=== PATIENT | female | born 1960 | race Caucasian/White ===

== ENCOUNTER → 2016-10-25 | Outpatient (CLI) | payer BC, OTHER ==
--- NOTE | 2016-10-25 10:13 | MR ---
EXAMINATION TYPE: MR cervical spine wo con DATE OF EXAM: 10/25/2016 COMPARISON: 08/16/2012 HISTORY: other csp disc degen, pain and numbness TECHNIQUE: Multiplanar, multisequence images of the cervical spine were acquired. C2-C3: No evidence for degenerative disc disease. No disc bulge/herniation or protrusion. No Canal stenosis. Foramina are patent bilaterally. C3-C4: No evidence for degenerative disc disease. No disc bulge/herniation or protrusion. No Canal stenosis. Foramina are patent bilaterally. C4-C5: There is a small central focal protrusion with mild anterior thecal sac compression. No cord c ontact is evident. No spinal canal stenosis present. Neural foramen are patent. C5-C6: Minimal broad-based disc bulge has anterior thecal sac flattening. This may be slightly greate r in the right paracentral and right lateral direction. Mild right foraminal narrowing may be present . C6-C7: There is mild left paracentral broad-based disc bulge with mild anterior thecal sac compressio n. No AP spinal canal stenosis present. Neural foramen are patent. C7-T1: Some mild right paracentral disc bulge is present with mild anterior thecal sac impression. No AP spinal canal stenosis present. The neural foramen are patent. Cervical segments are intact. There is normal alignment. Cervical spinal cord is of normal signal. Craniovertebral junction relationships are within normal limits. IMPRESSION: 1. Disc bulging with mild anterior thecal sac compression discussed above. Largest disc bulge appears to be in the left paracentral region at C6-7 without cord contact. 2. Findings appear stable from the comparison of 2012.
== END | disposition home or self-care (01) ==
LOC: RADMRIMAIN 08:19
PROVIDERS: ATTEND Internal Medicine Rheumatology
DX: M50.223 Other cervical disc displacement at C6-C7 level (principal); G95.20 Unspecified cord compression; M50.30 Other cervical disc degeneration, unspecified cervical region
CPT/HCPCS: 72141

== ENCOUNTER → 2017-05-08 | Outpatient (CLI) | payer OTHER ==
--- NOTE | 2017-05-08 10:30 | BD ---
EXAMINATION TYPE: MG DEXA axial skeleton. DATE OF EXAM: 05/08/2017 COMPARISON: June 21, 2012 CLINICAL HISTORY: bone disorder per order. Height: 5'5 Weight: 129 FRAX RISK QUESTIONS: Alcohol (3 or more units per day): no Family History (Parent hip fracture): yes Glucocorticoids (More than 3mos): no (Ex: prednisone, prednisolone, methylprednisolone, dexamethasone, and hydrocortisone). History of Fracture in Adulthood: yes Secondary Osteoporosis: 1. Type 1 Diabetes: no 2. Hyperthyroidism: no 3. Menopause before 45: no 4. Malnutrition: no 5. Chronic liver disease: no Rheumatoid Arthritis: no Current Tobacco Use: no RISK FACTORS HISTORY OF: History of Wrist Fracture: left When: childhood Family History of Osteoporosis: yes Active: no Diet low in dairy products/other sources of calcium: yes Postmenopausal woman: yes Take estrogen and/or progesterone medications: How lon months Frequent falls: MEDICATIONS: Additional Medications: cholesterols, high blood pressure, depression, pain Additional History: EXAM MEASUREMENTS: Bone mineral densitometry was performed using the [employer]. Bone mineral density as measured about the Lumbar spine is: ----- L1-L4(G/cm2): 1.286 T Score Values are as follows: ----- L2: -1.6 ----- L3: -0.5 ----- L4: --0.7 ------L1-L4:-0.8 -Bone mineral density has: Decreased - 3.4nce study of: 06/21/2012 Bone mineral density about the R hip (g/cm2): 0.891 Bone mineral density about the L hip (g/cm2): 0.828 T Score values are as follows: -----R Neck: -1.5 -----L Neck: -1.1 -----R Total: -1.8 -----L Total: -1.7 Bone mineral density has: Decreased -6.9% since study of: 06/21/2012 IMPRESSION Osteopenia (T Score between -2.5 and -1 as noted by T score values is now present in both hips. Bone density is noted decreased or diminished from prior. There remains slightly increased risk of fractur e and the patient may be considered for treatment. Re-Screen 2-5 years. NOTE: T-SCORE=SD OF THE YOUNG ADULT MEAN.
--- NOTE | 2017-05-09 07:13 | MM ---
Reason for exam: screening (asymptomatic). Last mammogram was performed 3 years and 2 months ago. History: Patient is postmenopausal. Took hormonal contraceptives for 15 years. Physical Findings: A clinical breast exam by your physician is recommended on an annual basis and results should be correlated with mammographic findings. MG 3D Screening Mammo W/Cad Bilateral CC and MLO view(s) were taken. Prior study comparison: February 27, 2014, left breast MG work up mamm w CAD LT. May 31, 2009, mammogram. The breast tissue is heterogeneously dense. This may lower the sensitivity of mammography. There is chronic nodularity bilaterally, stable in the left breast 2013. ASSESSMENT: Benign, BI-RAD 2 RECOMMENDATION: Routine screening mammogram of both breasts in 1 year.
== END | disposition home or self-care (01) ==
LOC: RADMAMWWP 08:52
PROVIDERS: ATTEND Obstetrics & Gynecology
DX: Z12.31 Encounter for screening mammogram for malignant neoplasm of breast (principal); M85.852 Other specified disorders of bone density and structure, left thigh; M85.851 Other specified disorders of bone density and structure, right thigh
CPT/HCPCS: 77063; 77067; 77080

== ENCOUNTER 2017-07-28 11:13 | Observation (INO) | payer OTHER ==
[2017-07-28] MEDS ORDERED: NITROGLYCERIN OINT 1 INCH/GM PACKET TOPICAL STA (11:28)
[2017-07-28] MEDS ORDERED: LORazepam 1 MG TAB PO STA (11:28)
[2017-07-28] MEDS ORDERED: ASPIRIN 81 MG PO STA (11:28)
--- NOTE | 2017-07-28 11:31 | ED ---
General Adult HPI - General Chief complaint: Chest Pain Stated complaint: Hypertension, Chest pain Time Seen by Provider: 07/28/17 11:23 Source: patient, RN notes reviewed Mode of arrival: ambulatory Limitations: no limitations - History of Present Illness Initial comments: Patient is a pleasant 56-year-old female presenting to the emergency department with chest discomfort. Patient had some symptoms yesterday however has been persistent since waking this morning. Discomfort is mild. Discomfort is described as tightness without radiation. Patient has some mild associated nausea. No dyspnea or diaphoresis. Patient does feel somewhat anxious. Patient states her blood pressure has been running high. - Related Data Allergies Allergy/AdvReac Type Severity Reaction Status Date / Time codeine Allergy Rash/Hives Verified 07/28/17 11:20 Review of Systems ROS Statement: Those systems with pertinent positive or pertinent negative responses have been documented in the HPI. ROS Other: All systems not noted in ROS Statement are negative. Constitutional: Denies: fever Eyes: Denies: eye pain ENT: Denies: ear pain Respiratory: Denies: cough, dyspnea Cardiovascular: Reports: chest pain Endocrine: Denies: fatigue Gastrointestinal: Denies: abdominal pain Genitourinary: Denies: dysuria Musculoskeletal: Denies: back pain Skin: Denies: rash Neurological: Denies: weakness Psychiatric: Reports: anxiety Past Medical History Past Medical History: Fibromyalgia, Hyperlipidemia, Hypertension History of Any Multi-Drug Resistant Organisms: None Reported Past Surgical History: Cholecystectomy, Tonsillectomy Past Psychological History: Depression Smoking Status: Never smoker Past Alcohol Use History: Rare Past Drug Use History: None Reported General Exam Limitations: no limitations General appearance: alert, in no apparent distress Head exam: Present: atraumatic Eye exam: Present: normal appearance, PERRL ENT exam: Present: normal oropharynx Neck exam: Present: normal inspection Respiratory exam: Present: normal lung sounds bilaterally. Absent: chest wall tenderness Cardiovascular Exam: Present: regular rate, normal rhythm Expanded Peripheral pulses: 2+: Radial (R), Radial (L), Posterior Tibialis (R), Posterior Tibialis (L) GI/Abdominal exam: Present: soft. Absent: tenderness Extremities exam: Present: normal inspection. Absent: pedal edema, calf tenderness Neurological exam: Present: alert Psychiatric exam: Present: normal mood Skin exam: Present: normal color Course Vital Signs 07/28/17 07/28/17 07/28/17 11:17 11:56 13:15 Temperature 98.3 F Pulse Rate 79 74 63 Respiratory 18 18 18 Rate Blood Pressure 199/93 168/86 150/77 O2 Sat by Pulse 99 100 99 Oximetry EKG Findings - EKG Comments: EKG Findings:: Normal sinus rhythm 73. PA 144. QRS 80. QT 396. QTc 436. Normal axis. Normal QRS. No acute ST change. Medical Decision Making - Medical Decision Making Patient reevaluated and resting comfortably in bed. Anxiety resolved with Ativan. Patient still has minimal chest discomfort. Case was discussed in detail with Dr. Glover, who will admit his patient. He does not want any consults at this time. - Lab Data Result diagrams: 07/28/17 11:39 07/28/17 11:39 Lab Results 07/28/17 07/28/17 07/28/17 Range/Units 11:39 11:39 11:39 WBC 10.0 (3.8-10.6) k/uL RBC 4.43 (3.80-5.40) m/uL Hgb 13.5 (11.4-16.0) gm/dL Hct 39.4 (34.0-46.0) % MCV 88.8 (80.0-100.0) fL MCH 30.3 (25.0-35.0) pg MCHC 34.2 (31.0-37.0) g/dL RDW 12.9 (11.5-15.5) % Plt Count 382 (150-450) k/uL Neutrophils % 69 % Lymphocytes % 21 % Monocytes % 5 % Eosinophils % 2 % Basophils % 1 % Neutrophils # 6.9 (1.3-7.7) k/uL Lymphocytes # 2.1 (1.0-4.8) k/uL Monocytes # 0.5 (0-1.0) k/uL Eosinophils # 0.2 (0-0.7) k/uL Basophils # 0.1 (0-0.2) k/uL PT (9.0-12.0) sec INR (<1.2) APTT (22.0-30.0) sec Sodium 144 (137-145) mmol/L Potassium 3.9 (3.5-5.1) mmol/L Chloride 101 (98-107) mmol/L Carbon Dioxide 28 (22-30) mmol/L Anion Gap 15 mmol/L BUN 17 (7-17) mg/dL Creatinine 0.75 (0.52-1.04) mg/dL Est GFR (CKD-EPI)AfAm >90 (>60 ml/min/1.73 sqM) Est GFR (CKD-EPI)NonAf 90 (>60 ml/min/1.73 sqM) Glucose 92 (74-99) mg/dL Calcium 10.2 (8.4-10.2) mg/dL Magnesium 1.9 (1.6-2.3) mg/dL Total Bilirubin 0.6 (0.2-1.3) mg/dL AST 41 H (14-36) U/L ALT 32 (9-52) U/L Alkaline Phosphatase 50 (38-126) U/L Total Creatine Kinase 133 (30-135) U/L CK-MB (CK-2) 2.8 H* (0.0-2.4) ng/mL CK-MB (CK-2) Rel Index 2.1 Troponin I <0.012 (0.000-0.034) ng/mL Total Protein 7.5 (6.3-8.2) g/dL Albumin 4.6 (3.5-5.0) g/dL 07/28/17 Range/Units 11:39 WBC (3.8-10.6) k/uL RBC (3.80-5.40) m/uL Hgb (11.4-16.0) gm/dL Hct (34.0-46.0) % MCV (80.0-100.0) fL MCH (25.0-35.0) pg MCHC (31.0-37.0) g/dL RDW (11.5-15.5) % Plt Count (150-450) k/uL Neutrophils % % Lymphocytes % % Monocytes % % Eosinophils % % Basophils % % Neutrophils # (1.3-7.7) k/uL Lymphocytes # (1.0-4.8) k/uL Monocytes # (0-1.0) k/uL Eosinophils # (0-0.7) k/uL Basophils # (0-0.2) k/uL PT 10.2 (9.0-12.0) sec INR 1.0 (<1.2) APTT 33.2 H (22.0-30.0) sec Sodium (137-145) mmol/L Potassium (3.5-5.1) mmol/L Chloride (98-107) mmol/L Carbon Dioxide (22-30) mmol/L Anion Gap mmol/L BUN (7-17) mg/dL Creatinine (0.52-1.04) mg/dL Est GFR (CKD-EPI)AfAm (>60 ml/min/1.73 sqM) Est GFR (CKD-EPI)NonAf (>60 ml/min/1.73 sqM) Glucose (74-99) mg/dL Calcium (8.4-10.2) mg/dL Magnesium (1.6-2.3) mg/dL Total Bilirubin (0.2-1.3) mg/dL AST (14-36) U/L ALT (9-52) U/L Alkaline Phosphatase (38-126) U/L Total Creatine Kinase (30-135) U/L CK-MB (CK-2) (0.0-2.4) ng/mL CK-MB (CK-2) Rel Index Troponin I (0.000-0.034) ng/mL Total Protein (6.3-8.2) g/dL Albumin (3.5-5.0) g/dL - Radiology Data Radiology results: image reviewed (Chest x-ray shows no acute process.) Disposition Clinical Impression: Chest pain Disposition: ADMITTED IP TO THIS [facility] Is patient prescribed a controlled substance at d/c from ED?: No Referrals: Bob Glover MD [Primary Care Provider] - 1-2 days Decision Time: 13:54
[2017-07-28 12:14] LABS: Basophils # (A) 0.1 k/uL (0-0.2); Basophils % (A) 1 %; Eosinophils # (A) 0.2 k/uL (0-0.7); Eosinophils % (A) 2 %; HCT 39.4 % (34.0-46.0); HGB 13.5 gm/dL (11.4-16.0); Lymphocytes # (A) 2.1 k/uL (1.0-4.8); Lymphocytes % (A) 21 %; MCH 30.3 pg (25.0-35.0); MCHC 34.2 g/dL (31.0-37.0); MCV 88.8 fL (80.0-100.0); Mean Platelet Volume 6.7; Monocytes # (A) 0.5 k/uL (0-1.0); Monocytes % (A) 5 %; Neutrophils # (A) 6.9 k/uL (1.3-7.7); Neutrophils % (A) 69 %; Platelet Count 382 k/uL (150-450); RBC 4.43 m/uL (3.80-5.40); RDW 12.9 % (11.5-15.5)
[2017-07-28 12:23] LABS: Partial Thromboplastin Time 33.2 sec (22.0-30.0); Prothrombin Time 10.2 sec (9.0-12.0)
[2017-07-28 12:32] LABS: ALT 32 U/L (9-52); AST 41 U/L (14-36); Albumin 4.6 g/dL (3.5-5.0); Alkaline Phosphatase 50 U/L (38-126); Anion Gap 15 mmol/L; Blood Urea Nitrogen 17 mg/dL (7-17); Calcium 10.2 mg/dL (8.4-10.2); Carbon Dioxide 28 mmol/L (22-30); Chloride 101 mmol/L (98-107); Glucose 92 mg/dL (74-99); Magnesium 1.9 mg/dL (1.6-2.3); Potassium 3.9 mmol/L (3.5-5.1); Sodium 144 mmol/L (137-145); Total Bilirubin 0.6 mg/dL (0.2-1.3); Total Protein 7.5 g/dL (6.3-8.2)
[2017-07-28 12:35] LABS: Creatine Kinase 133 U/L (30-135)
--- NOTE | 2017-07-28 12:41 | XR ---
EXAMINATION TYPE: XR chest 2V DATE OF EXAM: 07/28/2017 HISTORY: Chest Pain. REFERENCE: Previous study dated 04/08/2011. FINDINGS: The lungs are overinflated but clear. Pleural spaces are clear. The heart is not enlarged. IMPRESSION: COPD.
[2017-07-28 12:48] LABS: Troponin I <0.012 ng/mL (0.000-0.034)
[2017-07-28 12:52] LABS: Creatine Kinase MB 2.8 ng/mL (0.0-2.4)
[2017-07-28] MEDS ORDERED: NITROGLYCERIN SL TABS 0.4 MG TAB SUBLINGUAL PRN (13:55)
[2017-07-28] MEDS ORDERED: ALPRAZolam 0.25 MG TAB PO PRN (16:13)
--- NOTE | 2017-07-28 18:03 | HP ---
HISTORY AND PHYSICAL CHIEF COMPLAINT: Chest pain and high blood pressure. HISTORY OF PRESENT ILLNESS: This is another admission is for this 56-year-old white female. She has had problems with hypertension in the past. She is generally under fairly good control with Ziac. She has also had some problems with depression. Her mother recently, but she feels that this is not been a stressor. She has no other stressors. She is retired and doing well. She noticed that she had a headache and some discomfort in her left anterior chest and her blood pressure was 190/110. She took an extra Ziac and went to bed. Apparently when she got up this morning, she felt dizzy and came into the emergency room, where blood pressure was 190/100. She felt a little bit nauseated, but she did not have any significant shortness of breath or diaphoresis. She had no radiation of the pain. The pain sounds atypical for angina. She does have a family history. Her mother had coronary disease and had a 4-vessel CABG at age of 55. She also had profound hypertension and kidney disease. The remainder of her past medical history is unremarkable. She does not smoke or drink. PHYSICAL EXAMINATION: Blood pressure 190/100 with a pulse of 86,respirations of 36 and she is afebrile. In general, she appeared to be slender, well developed, well nourished, in no acute distress. Skin color is normal. Skin is warm, dry. Lymph nodes not enlarged. Head, ears, eyes, nose, mouth, and throat are normal. Carotids are normal. Chest is clear. Cardiac is normal sinus rhythm and no murmurs or extra sounds. Abdomen is soft, nontender and there is no visceromegaly or masses. Bowel sounds are present. Extremities are normal. Neurologically, she is intact. IMPRESSION: 1. Hypertensive crisis. 2. History of hypertension. 3. History of depression. 4. Strong family history of heart disease. PLAN: 1. Bed rest. 2. IV fluids. 3. Serial EKGs and enzymes. 4. If these remain normal, she may be discharged, but should be set up for a stress echo. MMODL / IJN: [id number] /
[2017-07-28 18:06] LABS: Creatine Kinase 97 U/L (30-135)
[2017-07-28 18:18] LABS: Creatine Kinase MB 1.8 ng/mL (0.0-2.4); Troponin I <0.012 ng/mL (0.000-0.034)
[2017-07-28] MEDS ORDERED: RX INFO: IV CONTRAST WAS GIVEN 1 EACH MISC MISCELLANE PRN (19:56)
--- NOTE | 2017-07-28 20:34 | CT ---
EXAMINATION TYPE: CT chest angio for PE DATE OF EXAM: 07/28/2017 COMPARISON: Chest x-ray earlier today. HISTORY: Chest pain, elevated D-Dimer CT DLP: 159 mGycm. Automated Exposure Control for Dose Reduction was Utilized. CONTRAST: CTA scan of the thorax is performed with IV Contrast, patient injected with 60 mL of Isovue 370, pulm onary embolism protocol. MIP Images are created on CT scanner and reviewed. FINDINGS: LUNGS: There is mild right apical pleural/parenchymal scarring. No suspicious consolidation is identi fied. No concerning parenchymal nodule or mass is seen. There is mild underlying emphysematous change felt present. There is no pleural effusion or pneumothorax seen. The tracheobronchial tree is paten t. MEDIASTINUM: There is satisfactory enhancement of the pulmonary artery and its branches, there is no CT evidence for pulmonary embolism. There are no greater than 1 cm hilar or mediastinal lymph nodes. No cardiomegaly or pericardial effusion is seen. OTHER: Cholecystectomy clips are noted. There is mild multilevel spurring in the mid to lower thoraci c spine. Mild height loss is noted in the T9 vertebra superior and inferior endplates IMPRESSION: No CT evidence for acute pulmonary embolism. No suspicious acute pulmonary process.
[2017-07-28] MEDS: NITROGLYCERIN OINT 1 INCH/GM PACKET TOPICAL SCH ×2 (20:52→23:49)
[2017-07-28] MEDS ORDERED: PRAVASTATIN SODIUM 40 MG TAB PO SCH (21:00)
[2017-07-28 23:57] LABS: Creatine Kinase 85 U/L (30-135)
[2017-07-29 00:11] LABS: Creatine Kinase MB 1.3 ng/mL (0.0-2.4); Troponin I <0.012 ng/mL (0.000-0.034)
[2017-07-29 00:43] LABS: Cholesterol 164 mg/dL (<200); HDL Cholesterol 50 mg/dL (40-60); LDL Cholesterol,Calculated 89 mg/dL (0-99); Triglycerides 127 mg/dL (<150)
[2017-07-29] MEDS: NITROGLYCERIN OINT 1 INCH/GM PACKET TOPICAL SCH (04:48)
[2017-07-29] MEDS ORDERED: SENNOSIDES-DOCUSATE SODIUM 1 EACH TAB PO SCH (09:00)
[2017-07-29] MEDS ORDERED: BISOPROLOL-HCTZ 5-6.25 MG 1 EACH TAB PO SCH (09:00)
[2017-07-29] MEDS ORDERED: ASPIRIN 325 MG TAB PO SCH (09:00)
[2017-07-29] MEDS ORDERED: NON-FORMULARY DRUG (Aspirin Ec 325 MG) PO SCH (09:00)
[2017-07-29] MEDS ORDERED: DULoxetine HCL 60 MG CAPSULE.DR PO SCH (09:00)
[2017-07-29 09:52] VITALS: RESP 14
[2017-07-29 12:16] VITALS: BP 121/70; PULSE 58; TEMP 98.1
[2017-07-30] MEDS ORDERED: LISINOPRIL 20 MG TAB PO SCH (09:00)
--- NOTE | 2017-07-30 20:05 | DS ---
DISCHARGE SUMMARY CHIEF COMPLAINT: Chest pain, hypertension. HISTORY OF PRESENT ILLNESS AND PHYSICAL EXAM: Details of this lady's history and physical can be found in the initial workup. LABORATORY STUDIES: While she was in a hospital she had laboratory studies details of which can be found in the laboratory section of her chart. COURSE IN THE HOSPITAL: After admission she was placed on bedrest, started on intravenous fluids and antihypertensives. Blood pressure came down properly. Cardiac enzymes are normal and she did have a slightly elevated D-dimer, but her CTA of the chest was normal. She is doing well. It was felt she could be discharged on the twenty second and she will follow up in the office at which time we will set her up for a stress test and we will also provide her with the medication to take on a p.r.n. basis when her blood pressure spikes. FINAL DIAGNOSES: 1. Chest pain, noncardiac. 2. Acute hypertensive episode. OPERATIONS: None. CONSULTATION: None. She is improved. MMODL / IJN: [id number] /
== END 2017-07-29 12:50 | disposition home or self-care (01) ==
LOC: EC 11:13 → 3OBS 13:55 → 3SUR 19:01
PROVIDERS: ADMIT Family Medicine; ATTEND Family Medicine
DX: R07.89 Other chest pain (principal); I16.9 Hypertensive crisis, unspecified; I10 Essential (primary) hypertension; N28.9 Disorder of kidney and ureter, unspecified; R79.89 Other specified abnormal findings of blood chemistry; F32.9 Major depressive disorder, single episode, unspecified; F41.9 Anxiety disorder, unspecified; M79.7 Fibromyalgia; E78.5 Hyperlipidemia, unspecified; Z79.82 Long term (current) use of aspirin; Z79.899 Other long term (current) drug therapy; Z88.5 Allergy status to narcotic agent; Z90.49 Acquired absence of other specified parts of digestive tract; Z82.49 Family history of ischemic heart disease and other diseases of the circulatory system
CPT/HCPCS: 99285 ×2; 36415; 93005; 85379; 80061; 80053; 82550; 82553; 83735; 84484; 85025; 85610; 85730; 71046; 71275; G0378 ×2; Q9967

== ENCOUNTER → 2017-08-16 | Outpatient (CLI) | payer OTHER ==
--- NOTE | 2017-08-16 11:23 | ECHOS ---
STRESS ECHOCARDIOGRAM DATE OF SERVICE: 08/16/2017 INDICATION OF THE STUDY: Chest pain. MEDICATIONS: Ziac, aspirin. BASELINE HEART RATE: 66 BASELINE BLOOD PRESSURE: 102/87 MAXIMUM HEART RATE: 157 MAXIMUM BLOOD PRESSURE: 136/74 85% MPHR: 139 100% MPHR: 164 METS: 9.7 MAXIMUM STAGE REACHED: II TOTAL EXERCISE TIME: 8 minutes CLINICAL INFORMATION: STRESS DATA: Pretesting physical examination showed a heart rate of 66, pressure is 102/87 mmHg. Baseline EKG showed sinus mechanism. The patient exercised on the treadmill according to Jacob protocol for a total of 8 minutes and achieved 9.7 METs. Max heart rate was 157 beats per minute which is about 95% of maximum predicted heart rate. Maximum blood pressure was 136/74 mmHg. Clinically, the patient did not have any symptoms of chest pain or discomfort. The EKG showed about 2 to [address]- segment changes concerning for ischemia. ECHOCARDIOGRAM IMAGES: Echocardiogram images from parasternal long axis view, parasternal short axis view, apical 4 chambers and apical 2 chamber view were obtained as the baseline images, at the peak of the heart rate, as well as on recovery. The echocardiogram images did reveal very mild wall motion abnormalities involving the distal lateral wall of the left ventricle. CONCLUSION: 1. Excellent exercise capacity. 2. Abnormal EKG in response to exercise with ST changes concerning for ischemia. 3. Mild wall motion abnormalities in response to exercise also concerning for ischemia. 4. Overall abnormal stress echocardiogram. MMODL / JIN: [id number] /
== END | disposition home or self-care (01) ==
LOC: RADNMMAIN 10:12
PROVIDERS: ATTEND Family Medicine
DX: R94.31 Abnormal electrocardiogram [ECG] [EKG] (principal); R07.9 Chest pain, unspecified; Z88.5 Allergy status to narcotic agent; Z88.8 Allergy status to other drugs, medicaments and biological substances
CPT/HCPCS: 93351

== ENCOUNTER → 2017-08-30 | Day surgery (SDC) | payer OTHER ==
[2017-08-24 16:10] VITALS: BMI 20.7
[~2017-08-30] MED LIST: ALPRAZolam 0.25 MG TAB PO PRN; ALPRAZolam 0.5 MG TAB PO PRN; ASPIRIN 325 MG TAB PO STA; ATORVASTATIN 80 MG TAB PO STA; IOPAMIDOL-370 125ML BTL INJ ONE; LIDOCAINE 2% INJ 20 MG/ML (20 ML MDV) ONE; LIDOCAINE 2% INJ 20 MG/ML SQ ONE; MIDAZOLAM 2 MG/2 ML VIAL IV ONE; MIDAZOLAM 2 MG/2 ML VIAL ONE; NITROGLYCERIN 1000MCG/10ML SYRINGE INTRACORON ONE; NITROGLYCERIN SL TABS 0.4 MG TAB SUBLINGUAL PRN; RX INFO: IV CONTRAST WAS GIVEN 1 EACH MISC MISCELLANE PRN; SODIUM CHLORIDE 0.9% 1,000 ML IV SCH; SODIUM CHLORIDE 0.9% 1,000 ML in EMPTY BAG 1 BAG IV ONE
[2017-08-30 09:56] VITALS: RESP 18
[2017-08-30 10:04] LABS: Basophils # (A) 0.1 k/uL (0-0.2); Basophils % (A) 1 %; Eosinophils # (A) 0.2 k/uL (0-0.7); Eosinophils % (A) 2 %; HCT 38.7 % (34.0-46.0); HGB 12.7 gm/dL (11.4-16.0); Lymphocytes # (A) 2.2 k/uL (1.0-4.8); Lymphocytes % (A) 24 %; MCH 29.1 pg (25.0-35.0); MCHC 32.8 g/dL (31.0-37.0); MCV 88.8 fL (80.0-100.0); Mean Platelet Volume 7.1; Monocytes # (A) 0.6 k/uL (0-1.0); Monocytes % (A) 6 %; Neutrophils # (A) 6.1 k/uL (1.3-7.7); Neutrophils % (A) 66 %; Platelet Count 363 k/uL (150-450); RBC 4.36 m/uL (3.80-5.40); RDW 12.9 % (11.5-15.5); WBC 9.3 k/uL (3.8-10.6)
[2017-08-30 10:14] LABS: Anion Gap 15 mmol/L; Blood Urea Nitrogen 21 mg/dL (7-17); Calcium 9.5 mg/dL (8.4-10.2); Carbon Dioxide 27 mmol/L (22-30); Chloride 103 mmol/L (98-107); Glucose 74 mg/dL (74-99); Potassium 3.4 mmol/L (3.5-5.1); Sodium 145 mmol/L (137-145)
--- NOTE | 2017-08-30 12:26 | LTR ---
August 30, 2017 Re: Megan [place]: Ms. Mary Guzman underwent a heart catheterization today and that revealed mild disease involving the mid LAD, appeared to be in the range of 30%. I want to thank you for allowing me to participate in her care and please do not hesitate to call if you have any question or concern. Sincerely, MD BRITTNEE Gama / KT: [id number] /
--- NOTE | 2017-08-30 12:38 | CC ---
CARDIAC CATHETERIZATION REPORT DATE OF SERVICE: 08/30/2017 PERFORMING PHYSICIAN: Delonte Lott MD, Fringe Knotter. PROCEDURE PERFORMED: 1. Selective right and left coronary angiogram. 2. Left heart catheterization. INDICATION: This is a pleasant 56-year-old female patient who was experiencing chest discomfort and underwent stress echocardiogram and that revealed ischemia in the lateral wall. Because of that, heart catheterization was recommended. APPROACH: Right common femoral artery. COMPLICATION: None. LEVEL OF SEDATION: Moderate with sedation length of 22 minutes. PROCEDURE DESCRIPTION: After obtaining an informed consent, the patient was brought to the Cardiac Dock Operator. The right common femoral artery was cannulated using micropuncture technique. The micropuncture wire passed easily, then I placed a 6-Sami sheath in the right common femoral artery and I did selective right and left coronary angiogram using JR4 and JL3.5 catheters. Left heart catheterization was performed using JR4 catheter which flipped into the LV, then I did pullback across the aortic valve. The procedure was completed without any complication. SELECTIVE CORONARY ANGIOGRAM: 1. The right coronary artery is a large caliber vessel and it is a dominant vessel. The RCA is angiographically normal. It bifurcates into PDA and PLV branches, both are angiographically normal. 2. The left main is angiographically normal. It bifurcates into the circumflex and left anterior descending artery. 3. The left circumflex is a large caliber vessel and it is a nondominant vessel. The left circumflex beside being tortuous, appeared to be angiographically normal. 4. The LAD, the proximal LAD appeared to be angiographically normal. The mid LAD has a lesion, appeared to be in the range of 30%. The LAD distally appeared to be angiographically normal off. The LAD gives rise into a large diagonal branch which seems to be angiographically normal as well. HEMODYNAMICS: The left ventricular end-diastolic pressure was 10 mmHg and no gradient was identified across the aortic valve. CONCLUSION: 1. 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 2. Normal left ventricular end-diastolic pressure. POSTPROCEDURE MANAGEMENT: 1. High intensity statin. 2. Aspirin as well in addition to statin. 3. Followup. 4. Aggressive cholesterol control. MMODL / IJN: [id number] /
[2017-08-30 13:12] VITALS: TEMP 97.4
[2017-08-30 15:58] VITALS: BP 116/68; PULSE 65
== END ==
LOC: CATHCVL 09:27
PROVIDERS: ATTEND Internal Medicine Interventional Cardiology
DX: I25.10 Atherosclerotic heart disease of native coronary artery without angina pectoris (principal); I77.1 Stricture of artery; I10 Essential (primary) hypertension; E78.5 Hyperlipidemia, unspecified; Z82.49 Family history of ischemic heart disease and other diseases of the circulatory system; Z79.82 Long term (current) use of aspirin; Z79.899 Other long term (current) drug therapy; Z88.5 Allergy status to narcotic agent
CPT/HCPCS: 93458; 80048; 85025; C1769; C1760; J2001; J2250; Q9967

== ENCOUNTER → 2018-02-08 | Outpatient (CLI) | payer OTHER ==
[2018-02-08 15:32] LABS: LDL Cholesterol,Calculated 87.8 mg/dL (0.0-131.0); VLDL Calculation 21.2 mg/dL (5.00-40.00)
== END | disposition home or self-care (01) ==
LOC: LABWHC1 08:15
PROVIDERS: ATTEND Nurse Practitioner Adult Health
DX: E78.5 Hyperlipidemia, unspecified (principal)
CPT/HCPCS: 36415; 80061

== ENCOUNTER → 2018-05-29 | Outpatient (CLI) | payer OTHER ==
[2018-05-29 15:43] LABS: Basophils # (A) 0.1 k/uL (0-0.2); Basophils % (A) 1 %; Eosinophils # (A) 0.3 k/uL (0-0.7); Eosinophils % (A) 4 %; HCT 37.4 % (34.0-46.0); HGB 12.2 gm/dL (11.4-16.0); Lymphocytes # (A) 1.9 k/uL (1.0-4.8); Lymphocytes % (A) 26 %; MCH 30.3 pg (25.0-35.0); MCHC 32.7 g/dL (31.0-37.0); MCV 92.7 fL (80.0-100.0); Mean Platelet Volume 6.8; Monocytes # (A) 0.4 k/uL (0-1.0); Monocytes % (A) 6 %; Neutrophils # (A) 4.5 k/uL (1.3-7.7); Neutrophils % (A) 62 %; Platelet Count 363 k/uL (150-450); RBC 4.03 m/uL (3.80-5.40); RDW 13.4 % (11.5-15.5); WBC 7.2 k/uL (3.8-10.6)
[2018-05-29 17:25] LABS: Erythrocyte Sedimentation Rate 15 mm/hr (0-20)
== END | disposition home or self-care (01) ==
LOC: LABWHC1 14:57
PROVIDERS: ATTEND Physical Medicine & Rehabilitation
DX: M50.322 Other cervical disc degeneration at C5-C6 level (principal); M47.812 Spondylosis without myelopathy or radiculopathy, cervical region; M79.12 Myalgia of auxiliary muscles, head and neck; G56.01 Carpal tunnel syndrome, right upper limb; M24.231 Disorder of ligament, right wrist; M25.531 Pain in right wrist
CPT/HCPCS: 36415; 85025; 85652; 86140

== ENCOUNTER → 2018-11-04 | Outpatient (CLI) | payer OTHER ==
[2018-11-04 10:23] LABS: HCT 37.8 % (34.0-46.0); HGB 12.1 gm/dL (11.4-16.0); MCH 29.2 pg (25.0-35.0); MCV 91.3 fL (80.0-100.0); Mean Platelet Volume 7.7; Platelet Count 303 k/uL (150-450); RBC 4.15 m/uL (3.80-5.40); RDW 12.9 % (11.5-15.5); WBC 8.8 k/uL (3.8-10.6)
[2018-11-04 17:41] LABS: African American GFR (CKD) 94.2 (60.0-200.0); Anion Gap 5.4 mmol/L (4.00-12.00); BUN/Creat Ratio 27.5 Ratio (12.00-20.00); Calcium 9.2 mg/dL (8.7-10.3); Carbon Dioxide 25.6 mmol/L (21.6-31.8); LDL Cholesterol,Calculated 67.2 mg/dL (0.0-131.0); Magnesium 1.9 mg/dL (1.5-2.4); Potassium 3.9 mmol/L (3.5-5.5); VLDL Calculation 15.8 mg/dL (5.00-40.00)
== END | disposition home or self-care (01) ==
LOC: LABWHC1 09:10
PROVIDERS: ATTEND Internal Medicine Interventional Cardiology
DX: I10 Essential (primary) hypertension (principal); E78.5 Hyperlipidemia, unspecified
CPT/HCPCS: 36415; 80048; 80061; 83735; 85027

== ENCOUNTER → 2018-11-11 | Outpatient (CLI) | payer OTHER ==
--- NOTE | 2018-11-13 09:40 | MM ---
Reason for exam: screening (asymptomatic). Last mammogram was performed 1 year and 6 months ago. History: Patient is postmenopausal. Took hormonal contraceptives for 15 years. Physical Findings: A clinical breast exam by your physician is recommended on an annual basis and results should be correlated with mammographic findings. MG 3D Screening Mammo W/Cad Bilateral CC and MLO view(s) were taken. Prior study comparison: May 08, 2017, bilateral MG 3d screening mammo w/cad. February 27, 2014, left breast MG work up mamm w CAD LT. The breast tissue is heterogeneously dense. This may lower the sensitivity of mammography. No significant changes when compared with prior studies. ASSESSMENT: Benign, BI-RAD 2 RECOMMENDATION: Routine screening mammogram of both breasts in 1 year.
== END | disposition home or self-care (01) ==
LOC: RADMAMWWP 13:21
PROVIDERS: ATTEND Obstetrics & Gynecology
DX: Z12.31 Encounter for screening mammogram for malignant neoplasm of breast (principal)
CPT/HCPCS: 77063; 77067

== ENCOUNTER → 2019-12-23 | Outpatient (CLI) | payer OTHER ==
--- NOTE | 2019-12-23 19:29 | BD ---
EXAMINATION TYPE: Axial Bone Density DATE OF EXAM: 12/23/2019 COMPARISON: NONE CLINICAL HISTORY: Postmenopausal screening Height: 65 Weight: 123.3 FRAX RISK QUESTIONS: Alcohol (3 or more units per day): no Family History (Parent hip fracture): yes Glucocorticoids (More than 3mos): no (Ex: prednisone, prednisolone, methylprednisolone, dexamethasone, and hydrocortisone). History of Fracture in Adulthood: yes Secondary Osteoporosis: 1. Type 1 Diabetes: no 2. Hyperthyroidism: no 3. Menopause before 45: no 4. Malnutrition: no 5. Chronic liver disease: no Rheumatoid Arthritis: no Current Tobacco Use: no RISK FACTORS HISTORY OF: History of Wrist Fracture: left When: 2019 and as a child Family History of Osteoporosis: yes Active: yes Diet low in dairy products/other sources of calcium: yes Postmenopausal woman: age 48 Lost more than 2 inches in height since high school: no MEDICATIONS: Cymbalta, Crestor, ziac Additional History: EXAM MEASUREMENTS: Bone mineral densitometry was performed using the [employer]. Bone mineral density as measured about the Lumbar spine is: ----- L1-L4(G/cm2): 1.095 T Score Values are as follows: ----- L2: -0.9 ----- L3: -0.8 ----- L4: -0.9 ----- L1-L4: -0.7 Bone mineral density has: increased 0.4 % since study of: 03.08.2018 Bone mineral density about the R hip (g/cm2): 0.830 Bone mineral density about the L hip (g/cm2): 0.903 T Score values are as follows: -----R Neck: -1.5 -----L Neck: -1.0 -----R Total: -1.8 -----L Total: -1.6 Bone mineral density has: increased 0.4 % since study of: 03.08.2018 IMPRESSION: Osteopenia (T Score between -2.5 and -1). There is slightly increased risk of fracture and the patient may be considered for treatment. Re-Screen 2-5 years. NOTE: T-SCORE=SD OF THE YOUNG ADULT MEAN.
--- NOTE | 2019-12-24 11:50 | MM ---
Reason for exam: screening (asymptomatic). Last mammogram was performed 1 year and 1 month ago. History: Patient is postmenopausal. Took hormonal contraceptives for 15 years. Physical Findings: A clinical breast exam by your physician is recommended on an annual basis and results should be correlated with mammographic findings. MG 3D Screening Mammo W/Cad Bilateral CC and MLO view(s) were taken. Prior study comparison: November 11, 2018, bilateral MG 3d screening mammo w/cad. May 08, 2017, bilateral MG 3d screening mammo w/cad. The breast tissue is heterogeneously dense. This may lower the sensitivity of mammography. There is no discrete abnormality. ASSESSMENT: Negative, BI-RAD 1 RECOMMENDATION: Routine screening mammogram of both breasts in 1 year.
== END | disposition home or self-care (01) ==
LOC: RADMAMWWP 08:27
PROVIDERS: ATTEND Obstetrics & Gynecology
DX: Z12.31 Encounter for screening mammogram for malignant neoplasm of breast (principal); M85.80 Other specified disorders of bone density and structure, unspecified site
CPT/HCPCS: 77063; 77067; 77080

== ENCOUNTER → 2020-07-06 | Outpatient (CLI) | payer OTHER | END | disposition home or self-care (01) | LOC: LABWHC1 16:50 | PROVIDERS: ATTEND Family Medicine | DX: R51.9 Headache, unspecified (principal); Z20.822 Contact with and (suspected) exposure to COVID-19 | CPT/HCPCS: U0003; C9803 ==

== ENCOUNTER → 2021-01-13 | Outpatient (CLI) | payer OTHER ==
--- NOTE | 2021-01-14 10:55 | MM ---
Reason for exam: screening (asymptomatic). Last mammogram was performed 1 year and 1 month ago. History: Patient is postmenopausal. Took hormonal contraceptives for 15 years. Physical Findings: A clinical breast exam by your physician is recommended on an annual basis and results should be correlated with mammographic findings. MG 3D Screening Mammo W/Cad Bilateral CC and MLO view(s) were taken. Prior study comparison: December 23, 2019, bilateral MG 3d screening mammo w/cad. November 11, 2018, bilateral MG 3d screening mammo w/cad. The breast tissue is heterogeneously dense. This may lower the sensitivity of mammography. Benign appearing calcifications in the left breast. No significant changes when compared with prior studies. ASSESSMENT: Benign, BI-RAD 2 RECOMMENDATION: Routine screening mammogram of both breasts in 1 year.
== END | disposition home or self-care (01) ==
LOC: RADMAMWWP 08:16
PROVIDERS: ATTEND Obstetrics & Gynecology
DX: Z12.31 Encounter for screening mammogram for malignant neoplasm of breast (principal)
CPT/HCPCS: 77063; 77067

== ENCOUNTER → 2021-04-04 | Outpatient (CLI) | payer OTHER ==
[2021-04-04 08:35] VITALS: BP 147/84; PULSE 63; RESP 18; TEMP 98.5
--- NOTE | 2021-04-04 16:26 | P.PAINCN ---
History of Present Illness - Reason for Consult Consult date: 04/04/21 - History of Present Illness This is a 60 years old female with a chronic history of neck pain, started in 2016, she denies any initiating event and she reported that the pain started from the base of the skull used to radiate to the upper extremity bilaterally, patient treated in the past with cervical epidural steroid injection and she did fairly well until recently when she started having severe neck pain, the pain is constant and increases with any activity interfering with her quality of life, she denies any motor or sensory deficit she denies any fever or night sweats, patient already done home exercises and she is doing yoga and stretches exercise, and she is currently using heat therapy and she uses pain medication ibuprofen when necessary, Past Medical History Past Medical History: Chest Pain / Angina, Hyperlipidemia, Hypertension Additional Past Medical History / Comment(s): neck pain History of Any Multi-Drug Resistant Organisms: None Reported Past Surgical History: Cholecystectomy, Hysterectomy, Orthopedic Surgery, Tonsillectomy Additional Past Surgical History / Comment(s): lt shoulder subacromial decompression and bicep tendon repair. cervical epidural injections Past Anesthesia/Blood Transfusion Reactions: No Reported Reaction, Postoperative Nausea & Vomiting (PONV) Past Psychological History: Anxiety, Depression Smoking Status: Never smoker Past Alcohol Use History: Rare Past Drug Use History: None Reported - Past Family History Mother Family Medical History: Coronary Artery Disease (CAD), Hypertension, Myocardial Infarction (ME) Additional Family Medical History / Comment(s): 55 years had quad cabg Father Additional Family Medical History / Comment(s): irregular heartbeat (not a-fib) Sister(s) Family Medical History: CVA/TIA Additional Family Medical History / Comment(s): emotional problems, anxiety depression, rx addiction Medications and Allergies Home Medications Medication Instructions Recorded Confirmed Type Bisoprolol-Hctz 5-6.25 mg [Ziac 1 tab PO DAILY 07/28/17 04/04/21 History 5-6.25 MG] Calcium Citrate 50mg 200 mg PO DAILY 07/28/17 04/04/21 History DULoxetine HCL [Cymbalta] 60 mg PO DAILY 07/28/17 04/04/21 History Multivitamins, Thera [Multivitamin 1 tab PO DAILY 07/28/17 04/04/21 History (formulary)] Sennosides-Docusate Sodium 2 tab PO DAILY 07/28/17 04/04/21 History [Senokot-S] Aspirin [Donna Aspirin EC] 81 mg PO DAILY 03/30/21 04/04/21 History Cholecalciferol [Vitamin D3 (125 125 mcg PO DAILY 03/30/21 04/04/21 History Mcg = 5000 Iu)] Ibuprofen [Motrin] 600 mg PO Q6HR PRN 03/30/21 04/04/21 History Rosuvastatin [Crestor] 20 mg PO DAILY 03/30/21 04/04/21 History Allergies Allergy/AdvReac Type Severity Reaction Status Date / Time codeine Allergy Rash/Hives Verified 03/30/21 13:21 Physical Exam Vitals: Vital Signs Temp Pulse Resp BP Pulse Ox 04/04/21 08:11 98.5 F 63 18 147/84 100 Physical Examinations : -Constitutiona : Cooperative , not in acute distress . -HEENT : nech : supple , no Lymphadenopathy , normal thyroid size . : eyes : no ptosis , no icterus, no photophobia . - neurologic : Cranial nerve II to XII intact , no focal neurological deffecit . -psychatric : alert , oriented X 3 , appropriate affect , intact judgment and insight . -Lymphatic : no Lymphadenopathy . - musculoskeltal : Cervical Spine motor stregnth in the deltoid and biceps, normal right side , normal Left side motor stregnth biceps and the wrist extensors normal right side ,normal left side . motor stregnth in the triceps muscle . normal Right side , normal Left side deep tendon reflexes normal at the biceps , normal at Brachioradialis , normal at triceps. cervical facet loading test: Positive on the right side only , negative on the left side Spurling test= positive Right , positive left. Neck distraction test= positive Right , positive left. Jaleesa sign= positive right, positive left . Lumber spine moter stegnth lower extremities ,thigh and legs 5/5 Right side , 5/5 Left side Results Comments: MRI of the cervical spine multilevel cervical degenerative disc disease Assessment and Plan Plan: Assessment and plan=1-cervical degenerative disc disease. 2-cervical spondylosis. Patient could benefit from cervical epidural steroid injection at C6 7 levels. Procedure risk and benefits and alternatives were discussed with the patient and she agreed with the preceding Time with Patient: Greater than 30 PQRS Measure Charge Sheet Measure #130: Documentation of Current Meds in Medical Chart: Patient's medications documented in chart Measure #226: Tobacco Use: Screen & Cessation Intervention: Pt not a tobacco user Measure #111: Pneumonia Vaccination: Pneumococcal vaccine NOT administered or previously given Measure #47: Advance Care Plan: Advance care planning discussed & documented, pt chose/unable to give Measure #412: Opioid Treatment Agreement: No documentation of signed opioid treatment agreement Measure #408: Opioid Therapy Follow-up Evaluation: Patient had NO f/u eval mi nimum every 3 months during opioid therapy Measure #317: Preventitive Care & Scrn High Bld Press & F/U: Pre-hypertensive or hypertensive BP documented, pt will f/u with PCP Measure #128: Body Mass Index (BMI) Screening & Follow-up: BMI documented BELOW normal parameters - f/u documented Measure #131: Pain Assessment & Follow-up: Pain positive & plan documented, Follow-up scheduled Measure #431: Unhealthy Alcohol Use Preventative Care & Scrn: Patient not identified as an unhealthy alcohol user Mode of Arrival: Ambulatory - Pain Location Neck Non-Pharmacological Interventions: Heat, Home Exercise, Inactivity, Stretching Pharmacological Interventions: PRN Medication PQRS Narrative: Smoking Status Never smoker Blood Pressure 147/84 Pain Intensity [Neck] 3 Scale Used Numeric (1 - 10) Hx Alcohol Use (MH) No Home Medications: Ambulatory Orders Bisoprolol-Hctz 5-6.25 mg [Ziac 5-6.25 MG] 1 tab PO DAILY 07/28/17 Calcium Citrate 50mg 200 mg PO DAILY 07/28/17 DULoxetine HCL [Cymbalta] 60 mg PO DAILY 07/28/17 Multivitamins, Thera [Multivitamin (formulary)] 1 tab PO DAILY 07/28/17 Sennosides-Docusate Sodium [Senokot-S] 2 tab PO DAILY 07/28/17 Aspirin [Donna Aspirin EC] 81 mg PO DAILY 03/30/21 Cholecalciferol [Vitamin D3 (125 Mcg = 5000 Iu)] 125 mcg PO DAILY 03/30/21 Ibuprofen [Motrin] 600 mg PO Q6HR PRN 03/30/21 Rosuvastatin [Crestor] 20 mg PO DAILY 03/30/21
== END | disposition home or self-care (01) ==
LOC: PNWHC3 07:30
PROVIDERS: ATTEND Specialist
DX: M50.30 Other cervical disc degeneration, unspecified cervical region (principal); M47.892 Other spondylosis, cervical region
CPT/HCPCS: 99211

== ENCOUNTER 2021-04-21 12:15 | Day surgery (SDC) | payer OTHER ==
[2021-04-21 12:49] VITALS: RESP 16; TEMP 98.6
[2021-04-21] MEDS ORDERED: LACTATED RINGERS 1,000 ML IV ONE (12:58)
[2021-04-21] MEDS ORDERED: DEXAMETHASONE SOD PHOSPHATE 10 MG/ML 1 ML VIAL ONE (13:01)
[2021-04-21] MEDS ORDERED: fentaNYL (PF) 50 MCG/ML 2 ML AMP ONE (13:01)
[2021-04-21] MEDS ORDERED: MIDAZOLAM 2 MG/2 ML VIAL ONE (13:01)
[2021-04-21] MEDS ORDERED: IOPAMIDOL M200 10 ML VIAL ONE (13:01)
[2021-04-21] MEDS ORDERED: LACTATED RINGERS 1,000 ML IV SCH (13:19)
--- NOTE | 2021-04-21 13:20 | P.PCN ---
Date of Procedure: 04/21/21 Procedure(s) Performed: . PROCEDURE 1. Cervical epidural steroid injection under fluoroscopic guidance, C6-7 (fluoroscopy images available in the radiology department ) 2. Cervical epidurogram. PREOPERATIVE DIAGNOSIS: 1- Cervical Degenerative Disc Diseases 2-cervical spondylosis with cervical Facet arthropathy without myelopathy POSTOPERATIVE DIAGNOSIS: : 1- Cervical Degenerative Disc Diseases , 2-cervical spondylosis with cervical Facet arthropathy without myelopathy ANESTHESIA: Local anesthesia with lidocaine 1 % , and moderate sedation, with Versed 2 mg and Fentanyl 100 mcg. EBL 0 PROCEDURE INDICATION: The patient with neck pain and radiculitis unresponsive to conservative treatment consents for procedure. PROCEDURE DESCRIPTION / TECHNIQUE: The patient was seen and identified in the preoperative area. Risks, benefits, complications, including but not limited to infections ,bleeding , allergic reactions to the medications ,and not complete pain releife, and alternatives were discussed with the patient, the patient agreed to proceed with the procedure and signed the consent. Patient was taken to the OR and time out was completed. The patient was placed in the prone position on the procedure table. A pillow was placed under the patients chest to increase the cervical interlaminar space. The cervical area was prepped and draped in the usual sterile fashion. Vital signs were closely monitored during the procedure. Conscious sedation was used during the procedure to decrease patients anxiety. Using anterior-posterior fluoroscopy, the C6-7 interlaminar space was identified and the skin over this site was marked and then infiltrated with 1% lidocaine subcutaneously. Subsequently, a 20-gauge 3-1/2-inch Tuohy epidural needle was inserted and advanced toward the epidural space by means of the ``hanging-drop technique and guided by AP and lateral fluoroscopy. The correct needle position in the epidural space was verified with the injection of 2 mL of the water soluble contrast dye Isovue-200 and observing an excellent epidurogram with the epidural spread of the dye, after negative aspiration for blood and CSF and in the absence of paresthesias. then, mixture containing 20 mg Dexamethasone and 2 ml of preservative-free normal saline injected and a washout of epidurogram was seen. Needle was withdrawn intact, skin was cleansed, and bandages were applied. Complications= none. Disposition= patient was placed in supine position and transferred to the recovery room area in stable condition and there was no evidence of upper or lower extremity motor or sensory deficit after the procedure patient was discharged from recovery room after discharge criteria met and home discharge instructions was given by the staff and patient will follow with the pain clinic in 2-4 weeks
[2021-04-21 13:24] VITALS: PULSE 71
[2021-04-21 13:40] VITALS: BP 130/82
[2021-04-21] MEDS ORDERED: IV FLUID CONTINUATION 1,000 ML IV ONE (13:41)
--- NOTE | 2021-04-21 15:01 | FL ---
EXAMINATION TYPE: FL guided pain mgmt statistic DATE OF EXAM: 04/21/2021 CLINICAL HISTORY: Neck pain. TECHNIQUE: Fluoroscopy. COMPARISON: None. FINDINGS: Fluoroscopic guidance was provided during pain relief procedure performed by Dr. Cheng . A total of 5 seconds of fluoroscopic time was utilized during the procedure and 1 spot images are acquired. Single image acquired shows needle localization at the cervical thoracic junction. IMPRESSION: As Above.
== END 2021-04-21 13:55 | disposition home or self-care (01) ==
LOC: ORPAIN 12:15
PROVIDERS: ATTEND Specialist
DX: M50.10 Cervical disc disorder with radiculopathy, unspecified cervical region (principal); M47.22 Other spondylosis with radiculopathy, cervical region; Z78.0 Asymptomatic menopausal state; Z88.5 Allergy status to narcotic agent
CPT/HCPCS: 62321; J2250; J1100; J3010; Q9966; 99152

== ENCOUNTER 2021-05-05 12:17 | Day surgery (SDC) | payer OTHER ==
[2021-05-04 11:06] VITALS: BMI 19.4
[~2021-05-05 12:17] MED LIST changes: -ALPRAZolam 0.25 MG TAB PO PRN; -ALPRAZolam 0.5 MG TAB PO PRN; -ASPIRIN 325 MG TAB PO STA; -ATORVASTATIN 80 MG TAB PO STA; -IOPAMIDOL-370 125ML BTL INJ ONE; +LACTATED RINGERS 1,000 ML IV SCH; -LIDOCAINE 2% INJ 20 MG/ML (20 ML MDV) ONE; -LIDOCAINE 2% INJ 20 MG/ML SQ ONE; -MIDAZOLAM 2 MG/2 ML VIAL IV ONE; -MIDAZOLAM 2 MG/2 ML VIAL ONE; -NITROGLYCERIN 1000MCG/10ML SYRINGE INTRACORON ONE; -NITROGLYCERIN SL TABS 0.4 MG TAB SUBLINGUAL PRN; -RX INFO: IV CONTRAST WAS GIVEN 1 EACH MISC MISCELLANE PRN; -SODIUM CHLORIDE 0.9% 1,000 ML IV SCH; -SODIUM CHLORIDE 0.9% 1,000 ML in EMPTY BAG 1 BAG IV ONE
[2021-05-05 12:54] VITALS: RESP 16; TEMP 97.4
[2021-05-05] MEDS ORDERED: IOPAMIDOL M200 10 ML VIAL ONE (13:05)
[2021-05-05] MEDS ORDERED: SODIUM CHLORIDE 0.9% (PF) 10 ML VIAL ONE (13:05)
[2021-05-05] MEDS ORDERED: DEXAMETHASONE SOD PHOSPHATE 10 MG/ML 1 ML VIAL ONE (13:05)
[2021-05-05] MEDS ORDERED: fentaNYL (PF) 50 MCG/ML 2 ML AMP ONE (13:05)
[2021-05-05] MEDS ORDERED: MIDAZOLAM 2 MG/2 ML VIAL ONE (13:05)
--- NOTE | 2021-05-05 13:20 | P.PCN ---
Date of Procedure: 05/05/21 Procedure(s) Performed: PROCEDURE 1. Cervical epidural steroid injection under fluoroscopic guidance, C6-7 (fluoroscopy images available in the radiology department ) 2. Cervical epidurogram. #2nd PREOPERATIVE DIAGNOSIS: 1- Cervical Degenerative Disc Diseases 2-cervical spondylosis with cervical Facet arthropathy without myelopathy POSTOPERATIVE DIAGNOSIS: : 1- Cervical Degenerative Disc Diseases , 2-cervical spondylosis with cervical Facet arthropathy without myelopathy ANESTHESIA: Local anesthesia with lidocaine 1 % , and moderate sedation, with Versed 2 mg and Fentanyl 100 mcg. EBL 0 PROCEDURE INDICATION: The patient with neck pain and radiculitis unresponsive to conservative treatment consents for procedure. PROCEDURE DESCRIPTION / TECHNIQUE: The patient was seen and identified in the preoperative area. Risks, benefits, complications, including but not limited to infections ,bleeding , allergic reactions to the medications ,and not complete pain releife, and alternatives were discussed with the patient, the patient agreed to proceed with the procedure and signed the consent. Patient was taken to the OR and time out was completed. The patient was placed in the prone position on the procedure table. A pillow was placed under the patients chest to increase the cervical interlaminar space. The cervical area was prepped and draped in the usual sterile fashion. Vital signs were closely monitored during the procedure. Conscious sedation was used during the procedure to decrease patients anxiety. Using anterior-posterior fluoroscopy, the C6-7 interlaminar space was identified and the skin over this site was marked and then infiltrated with 1% lidocaine subcutaneously. Subsequently, a 20-gauge 3-1/2-inch Tuohy epidural needle was inserted and advanced toward the epidural space by means of the ``hanging-drop technique and guided by AP and lateral fluoroscopy. The correct needle position in the epidural space was verified with the injection of 2 mL of the water soluble contrast dye Isovue-200 and observing an excellent epidurogram with the epidural spread of the dye, after negative aspiration for blood and CSF and in the absence of paresthesias. then, mixture containing 20 mg Dexamethasone and 2 ml of preservative-free normal saline injected and a washout of epidurogram was seen. Needle was withdrawn intact, skin was cleansed, and bandages were applied. Complications= none. Disposition= patient was placed in supine position and transferred to the recovery room area in stable condition and there was no evidence of upper or lower extremity motor or sensory deficit after the procedure patient was discharged from recovery room after discharge criteria met and home discharge instructions was given by the staff and patient will follow with the pain clinic in 2-4 weeks
[2021-05-05] MEDS ORDERED: IV FLUID CONTINUATION 1,000 ML IV ONE (13:25)
[2021-05-05 13:41] VITALS: BP 138/76; PULSE 66
--- NOTE | 2021-05-05 16:17 | FL ---
Fluoroscopy INDICATION: Pain FINDINGS: Fluoroscopy time: 2 seconds. Images obtained: 1. IMPRESSIONS: 1. Documentation of fluoroscopy.
== END 2021-05-05 13:58 | disposition home or self-care (01) ==
LOC: ORPAIN 12:17
PROVIDERS: ATTEND Specialist
DX: M50.30 Other cervical disc degeneration, unspecified cervical region (principal); M47.812 Spondylosis without myelopathy or radiculopathy, cervical region; Z88.5 Allergy status to narcotic agent
CPT/HCPCS: 62321; J2250; J1100; J3010; Q9966; 99152; 99153

== ENCOUNTER → 2021-10-20 | Outpatient (CLI) | payer OTHER ==
[2021-10-20 14:44] VITALS: BP 118/79; PULSE 72; RESP 18; TEMP 97.8
--- NOTE | 2021-10-20 14:48 | P.PAINPG ---
PQRS Measure Charge Sheet Comment: A 60 yr old female with a history of severe and chronic neck pain secondary to cervical degenerative disc diseases and spondylosis with facet arthropathy presents today for cervical pain. Pain level is currently at 4/10 but escalates as high as 6/10 in intensity w provocation, localized in the lower aspect of neck and radiates towards superior aspects of Trapezius muscles. Pain is provoked by hyperextension. Pain is alleviated with laying supine, injections in the past, PT in 2019, medications (Motrin OTC), home exercise regimen as tolerated, repositioning and rest. Interventional pain procedures completed include NICOLÁS C6-C7 x 2 Patient is currently on Motrin OTC Patient denies any side effects of the medication(s), denies excessive drowsiness or sleepiness, denies suicidal ideation and reports that the current pain medication is helping to control the pain and improve activities of daily living. Patient denies any motor or sensory deficits. Patient denies any fever or night sweats, denies any change in the bowel movements or urination. Physical Examination: -Constitutional: Cooperative. Not in acute distress . - Neurologic: Cranial nerve II to XII intact. No focal neurological deficits. - Psychatric: Alert & oriented x 3. Matching mood & appropriate affect. Judgment and insight intact. - Musculoskeletal: Cervical spine: Muscle bulk/ tone/ strength in the bilateral upper extremities normal Vertebral body tenderness to palpation over C6 Spurling test positive Distraction test positive Facet loading test positive Thoracic spine Muscle bulk / tone/ strength in the bilateral paraspinal muscles normal Vertebral body tender to palpation over Facet loading test positive Lumbar spine: Motor bulk/ tone/ strength lower extremities , thigh and legs : 5/5 Deep tendon reflexes : Normal Knee Jerk. Normal Ankle Jerk . Vertebral body tenderness to palpation over Lumbar Facet Loading Test positive Straight Leg Raise: positive at 30 degrees right side/ left side Gaenslen's Test positive Sacral spine : Severe tenderness over the Sacroiliac joint: right side / left side Range of motion: Flexion of the lumbar spine <60 degrees Range of motion: Extension of the lumbar spine <20 degrees Gaenslen's Test positive James's Test positive Iban test: positive right side / left side Thigh Thrust Test Sacral Thrust Test Assessment and plan: Chronic neck pain secondary to degenerative disc disease , spondylosis with facet arthropathy without myelopathy Recommendation of NICOLÁS C6-C7. May need a series of injections, up to 4 within a year, for optimal pain relief. Risks, benefits of procedure discussed and pt verbalized understanding. Denies anticoagulant use or medical history of diabetes. Filled [place] 5/325mg q4h prn pain #18 NR. Use, side effects and adverse reactions discussed. Discussed safe storage of medication and pt acknowledged understanding. All patient questions answered MAPS reviewed and it was appropriate. I have spent less than 30 minutes on patient care today. Dr Cheng was available by phone for the evaluation of this patient. The time was used to review the medical records including relevant urine studies and Prescription history (MAPs), review of the available imaging, evaluation and examination of the patient, coordination of care with the medical staff and if applicable referring physicians, as well as creation of the medical record PQRS Narrative: Smoking Status Never smoker Hx Alcohol Use (MH) No Home Medications: Ambulatory Orders Bisoprolol-Hctz 5-6.25 mg [Ziac 5-6.25 MG] 1 tab PO DAILY 07/28/17 DULoxetine HCL [Cymbalta] 60 mg PO DAILY 07/28/17 Multivitamins, Thera [Multivitamin (formulary)] 1 tab PO DAILY 07/28/17 Sennosides-Docusate Sodium [Senokot-S] 2 tab PO DAILY 07/28/17 Aspirin [[place] Aspirin EC] 81 mg PO DAILY 03/30/21 Cholecalciferol [Vitamin D3 (125 Mcg = 5000 Iu)] 125 mcg PO DAILY 03/30/21 Ibuprofen [Motrin] 600 mg PO Q6HR PRN 03/30/21 Rosuvastatin [Crestor] 20 mg PO DAILY 03/30/21 Controlled Substance Measures - Controlled Substance Measures Is patient prescribed a controlled substance at discharge?: Yes When asked, does pt state using other controlled substances?: No If Rx opioid, was Start Talking consent form obtained?: Yes If opioid is for acute pain is fill amount 7 days or less?: Yes Was information provided regarding opioid addiction?: Yes
== END ==
LOC: PNWHC3 13:34
PROVIDERS: ATTEND Specialist
DX: M50.30 Other cervical disc degeneration, unspecified cervical region (principal); G89.29 Other chronic pain; Z88.5 Allergy status to narcotic agent
CPT/HCPCS: 99211

== ENCOUNTER 2021-11-24 09:26 | Day surgery (SDC) | payer OTHER ==
[~2021-11-24 09:26] MED LIST changes: +LIDOCAINE 1% (10MG/ML) FOR IV START INTRADERMA PRN
[2021-11-24 09:54] VITALS: TEMP 97.7
[2021-11-24] MEDS ORDERED: MIDAZOLAM 2 MG/2 ML VIAL ONE (10:07)
[2021-11-24] MEDS ORDERED: DEXAMETHASONE SOD PHOSPHATE 10 MG/ML 1 ML VIAL ONE (10:07)
[2021-11-24] MEDS ORDERED: IOPAMIDOL M200 10 ML VIAL ONE (10:07)
[2021-11-24] MEDS ORDERED: fentaNYL (PF) 50 MCG/ML 2 ML AMP ONE (10:07)
--- NOTE | 2021-11-24 10:22 | P.PCN ---
Date of Procedure: 11/24/21 Procedure(s) Performed: Procedure= 1. Cervical epidural steroid injection under fluoroscopic guidance, C6-7 (fluoroscopy images available in the radiology department ) 2. Cervical epidurogram. #2nd PREOPERATIVE DIAGNOSIS: 1- Cervical Degenerative Disc Diseases 2-cervical spondylosis with cervical Facet arthropathy without myelopathy POSTOPERATIVE DIAGNOSIS: : 1- Cervical Degenerative Disc Diseases , 2-cervical spondylosis with cervical Facet arthropathy without myelopathy ANESTHESIA: Local anesthesia with lidocaine 1 % , and moderate sedation, with Versed 2 mg and Fentanyl 100 mcg. Additionally start time: 1010. Sedation end time :1019 EBL 0 PROCEDURE INDICATION: The patient with neck pain and radiculitis unresponsive to conservative treatment consents for procedure. PROCEDURE DESCRIPTION / TECHNIQUE: The patient was seen and identified in the preoperative area. Risks, benefits, complications, including but not limited to infections ,bleeding , allergic reactions to the medications ,and not complete pain releife, and alternatives were discussed with the patient, the patient agreed to proceed with the procedure and signed the consent. Patient was taken to the OR and time out was completed. The patient was placed in the prone position on the procedure table. A pillow was placed under the patients chest to increase the cervical interlaminar space. The cervical area was prepped and draped in the usual sterile fashion. Vital signs were closely monitored during the procedure. Conscious sedation was used during the procedure to decrease patients anxiety. Using anterior-posterior fluoroscopy, the C6-7 interlaminar space was identified and the skin over this site was marked and then infiltrated with 1% lidocaine subcutaneously. Subsequently, a 20-gauge 3-1/2-inch Tuohy epidural needle was inserted and advanced toward the epidural space by means of the ``hanging-drop technique and guided by AP and lateral fluoroscopy. The correct needle position in the epidural space was verified with the injection of 2 mL of the water soluble contrast dye Isovue-200 and observing an excellent epidurogram with the epidural spread of the dye, after negative aspiration for blood and CSF and in the absence of paresthesias. then, mixture containing 20 mg Dexamethasone and 2 ml of preservative-free normal saline injected and a washout of epidurogram was seen. Needle was withdrawn intact, skin was cleansed, and bandages were jesus lied. Complications= none. Disposition= patient was placed in supine position and transferred to the recovery room area in stable condition and there was no evidence of upper or lower extremity motor or sensory deficit after the procedure patient was discharged from recovery room after discharge criteria met and home discharge instructions was given by the staff and patient will follow with the pain clinic in 2-4 weeks
[2021-11-24] MEDS ORDERED: IV FLUID CONTINUATION 800 ML IV ONE (10:28)
[2021-11-24 10:54] VITALS: BP 130/72; PULSE 67; RESP 16
--- NOTE | 2021-11-24 12:08 | FL ---
Fluoroscopy History: CERVICAL EPI INJ cervical epidural steroid injection, 5sec fl time
== END 2021-11-24 11:14 | disposition home or self-care (01) ==
LOC: ORPAIN 09:26
PROVIDERS: ATTEND Specialist
DX: M50.10 Cervical disc disorder with radiculopathy, unspecified cervical region (principal); M47.22 Other spondylosis with radiculopathy, cervical region; Z88.5 Allergy status to narcotic agent
CPT/HCPCS: 62321; J2250; J1100; J3010; Q9966; 99152

== ENCOUNTER → 2021-12-19 | Outpatient (CLI) | payer OTHER ==
[2021-12-19 09:12] VITALS: BP 119/67; PULSE 61; RESP 18; TEMP 98.2
--- NOTE | 2021-12-19 16:18 | P.PAINPG ---
PQRS Measure Charge Sheet Comment: A 61 yr old female with a history of severe and chronic neck pain secondary to cervical degenerative disc diseases and spondylosis with facet arthropathy without myelopathy presents today for evaluation status post NICOLÁS C6 to C7 #2. Pt states she experienced 100% pain relief currently s/p procedure. Pain level is currently at 0/10 in intensity. Pain has no provocative factors at this time. Pain is alleviated with injections, [place] as needed, repositioning and rest. Interventional pain procedures completed include NICOLÁS C6-C7 x2 Patient is currently on [place] prn Patient denies any side effects of the medication(s), denies excessive drowsiness or sleepiness, denies suicidal ideation and reports that the current pain medication is helping to control the pain and improve activities of daily living. Patient denies any motor or sensory deficits. Patient denies any fever or night sweats, denies any change in the bowel movements or urination. Physical Examination: -Constitutional: Cooperative. Not in acute distress . - Neurologic: Cranial nerve II to XII intact. No focal neurological deficits. - Psychatric: Alert & oriented x 3. Matching mood & appropriate affect. Judgment and insight intact. - Musculoskeletal: Cervical spine: Muscle bulk/ tone/ strength in the bilateral upper extremities normal Vertebral body tenderness to palpation over Spurling test positive Distraction test positive Facet loading test positive Thoracic spine Muscle bulk / tone/ strength in the bilateral paraspinal muscles normal Vertebral body tender to palpation over Facet loading test positive Lumbar spine: Motor bulk/ tone/ strength lower extremities , thigh and legs : 5/5 Deep tendon reflexes : Normal Knee Jerk. Normal Ankle Jerk . Vertebral body tenderness to palpation over Lumbar Facet Loading Test positive Straight Leg Raise: positive at 30 degrees right side/ left side Gaenslen's Test positive Sacral spine : Severe tenderness over the Sacroiliac joint: right side / left side Range of motion: Flexion of the lumbar spine <60 degrees Range of motion: Extension of the lumbar spine <20 degrees Gaenslen's Test positive James's Test positive Iban test: positive right side / left side Thigh Thrust Test Sacral Thrust Test Assessment and plan: Chronic neck pain secondary to cervical degenerative disc disease , spondylosis with facet arthropathy without myelopathy Pt received optimal pain relief w prior ESIs. She will follow home pain mgmt modalities at this time and may return to our clinic on an as needed basis. All patient questions answered MAPS reviewed and it was appropriate. I have spent less than 30 minutes on patient care today. Dr Cheng was available by phone for the evaluation of this patient. The time was used to review the medical records including relevant urine studies and Prescription history (MAPs), review of the available imaging, evaluation and examination of the patient, coordination of care with the medical staff and if applicable referring physicians, as well as creation of the medical record PQRS Narrative: Smoking Status Never smoker Hx Alcohol Use (MH) No Home Medications: Ambulatory Orders Bisoprolol-Hctz 5-6.25 mg [Ziac 5-6.25 MG] 1 tab PO DAILY 07/28/17 DULoxetine HCL [Cymbalta] 60 mg PO DAILY 07/28/17 Multivitamins, Thera [Multivitamin (formulary)] 1 tab PO DAILY 07/28/17 Sennosides-Docusate Sodium [Senokot-S] 2 tab PO DAILY 07/28/17 Aspirin [[place] Aspirin EC] 81 mg PO DAILY 03/30/21 Cholecalciferol [Vitamin D3 (125 Mcg = 5000 Iu)] 125 mcg PO DAILY 03/30/21 Ibuprofen [Motrin] 600 mg PO Q6HR PRN 03/30/21 Rosuvastatin [Crestor] 20 mg PO DAILY 03/30/21 HYDROcodone/APAP 5-325MG [[place] 5-325] 1 tab PO Q4HR PRN 3 Days #18 tab 10/26/21 Controlled Substance Measures - Controlled Substance Measures Is patient prescribed a controlled substance at discharge?: No
== END | disposition home or self-care (01) ==
LOC: PNWHC3 08:55
PROVIDERS: ATTEND Specialist
DX: M47.892 Other spondylosis, cervical region (principal); M50.30 Other cervical disc degeneration, unspecified cervical region
CPT/HCPCS: 99211

== ENCOUNTER → 2022-02-06 | Outpatient (CLI) | payer OTHER ==
--- NOTE | 2022-02-06 19:55 | BD ---
EXAMINATION TYPE: Axial Bone Density DATE OF EXAM: 02/06/2022 CLINICAL HISTORY: 61 years year old Female. ICD-10 CODE: M85.88 DISORDER OF BON Height: 65 Weight: 124.6 FRAX RISK QUESTIONS: Alcohol (3 or more units per day): NO Family History (Parent hip fracture): FATHER Glucocorticoids (More than 3mos): NO History of Fracture in Adulthood: YES FIBULA, WRIST Secondary Osteoporosis: 1. Type 1 Diabetes: NO 2. Hyperthyroidism: NO 3. Menopause before 45: NO 4. Malnutrition: NO 5. Chronic liver disease: NO Rheumatoid Arthritis: NO Current Tobacco Use: NO RISK FACTORS HISTORY OF: Hip Fracture (Right/Left): NO Spine Fracture: NO History of Wrist Fracture: LT AGE 57, LT WRIST AGE 5 Surgery to Spine/Hip(right/left)/Wrist (right/left): NO Family History of Osteoporosis: PATERNAL GRANDMOTHER, FATHER Active: YES Diet low in dairy products/other sources of calcium: YES Postmenopausal woman: YES Take estrogen and/or progesterone medications: NO Lost more than 2 inches in height since high school: NO Frequent falls: NO Poor Health: NO Hyperparathyroidism: NO Adrenal Insufficiency: NO MEDICATIONS: Prednisone or other steroids: NO Thyroid Medications: NO Osteoporosis Medications: NO Additional Medications CHOLESTEROL MEDS, BP MEDS, DEPRESSION MEDS, VIT D, MULTI VIT. EXAM MEASUREMENTS: Bone mineral densitometry was performed using the [employer]. Bone mineral density as measured about the Lumbar spine is: ----- L1-L4(G/cm2): 1.057 T Score Values are as follows: ----- L1: -1.1 ----- L2: -1.4 ----- L3: -0.6 ----- L4: -1.1 ----- L1-L4: -1.0 Bone mineral density has: DECREASED -2.0 % since study of: 12/23/2019 Bone mineral density about the R hip (g/cm2): 0.842 Bone mineral density about the L hip (g/cm2): 0.860 T Score values are as follows: -----R Neck: -1.4 -----L Neck: -1.3 -----R Total: -1.7 -----L Total: -2.0 Bone mineral density has: DECREASED -2.4 % since study of: 12/23/2019 FRAX%s: The graph provided illustrates a 23.5% chance for a major osteoporotic fx and a 1.2% chance f or the hips probability for fx in 10 years time. IMPRESSION: Osteopenia (T Score between -2.5 and -1). There is slightly increased risk of fracture and the patient may be considered for treatment. Re-Screen 2-5 years. NOTE: T-SCORE=SD OF THE YOUNG ADULT MEAN.
--- NOTE | 2022-02-07 17:22 | MM ---
Reason for Exam: Screening (asymptomatic). Last screening mammogram was performed 12 month(s) ago. Patient History: Menarche at age 11. First Full-Term at age 28. Hysterectomy at age 51. Postmenopausal. Patient has history of breast feeding. Patient used Hormonal Contraceptives for 15 years. Risk Values: [place] 5 year model risk: 1.8%. NCI Lifetime model risk: 8.6%. Prior Study Comparison: 11/11/2018 Bilateral Screening Mammogram, [facility]. 12/23/2019 Bilateral Screening Mammogram, [facility]. 01/13/2021 Bilateral Screening Mammogram, [facility]. Tissue Density: The breast tissue is heterogeneously dense. This may lower the sensitivity of mammography. Findings: Analyzed By CAD. Chronic nodules in the outer aspect right breast is stable. No significant interval changes are evident. No suspicious groups of microcalcifications, spiculated or lobular masses, architectural distortion or other secondary signs of malignancy are mammographically apparent. Overall Assessment: Benign, BI-RAD 2 Management: Screening Mammogram of both breasts in 1 year. A negative mammogram report should not preclude additional follow up of suspicious palpable abnormalities. Patient should continue monthly self breast exam. A clinical breast exam by your physician is recommended on an annual basis and results should be correlated with mammographic findings. Electronically signed and approved by: Brad Ugalde D.O. Radiologis
== END | disposition home or self-care (01) ==
LOC: RADBDWWP 07:55
PROVIDERS: ATTEND Obstetrics & Gynecology
DX: Z12.31 Encounter for screening mammogram for malignant neoplasm of breast (principal); M85.88 Other specified disorders of bone density and structure, other site
CPT/HCPCS: 77063; 77067; 77080

== ENCOUNTER → 2022-05-01 | Outpatient (CLI) | payer OTHER ==
[2022-05-01 15:08] VITALS: BP 151/87; PULSE 73; RESP 18; TEMP 98.4
--- NOTE | 2022-05-01 15:48 | P.PAINPG ---
Objective - Vital Signs Vital signs: Intake & Output 04/30/22 05/01/22 05/01/22 18:59 06:59 18:59 Weight 56.699 kg PQRS Measure Charge Sheet Comment: A 61 yr old female with a history of severe and chronic neck pain secondary to cervical DDD and spondylosis with facet arthropathy without myelopathy presents today for evaluation s/p IKE C6-C7. Pt states she experienced 100% x 4 mo s/p procedure. Pain level is provoked at 4 /10 in intensity, constant, localized in the cervical spine, dull/ achy in character w shooting towards BL shoulders. Pain is provoked by hyperextension, rotation. Pain is alleviated with PT in 2019, massage therapy x1 and currently in, yoga exercises 4 times weekly x 4 yrs, use of a soft C collar, heat, meds (Ibu), topicals, repositioning and rest. Interventional pain procedures completed include IKE C6-C7 Patient is currently on Ibu Patient denies any side effects of the medication(s), denies excessive drowsiness or sleepiness, denies suicidal ideation and reports that the current pain medication is helping to control the pain and improve activities of daily living. Patient denies any motor or sensory deficits. Patient denies any fever or night sweats, denies any change in the bowel movements or urination. Physical Examination: -Constitutional: Cooperative. Not in acute distress . - Neurologic: Cranial nerve II to XII intact. No focal neurological deficits. - Psychatric: Alert & oriented x 3. Matching mood & appropriate affect. Judgment and insight intact. - Musculoskeletal: Cervical spine: Muscle bulk/ tone/ strength in the bilateral upper extremities normal Vertebral body tenderness to palpation over Spurling test positive Distraction test positive Facet loading test positive Thoracic spine Muscle bulk / tone/ strength in the bilateral paraspinal muscles normal Vertebral body tender to palpation over Facet loading test positive Lumbar spine: Motor bulk/ tone/ strength lower extremities , thigh and legs : 5/5 Deep tendon reflexes : Normal Knee Jerk. Normal Ankle Jerk . Vertebral body tenderness to palpation over C6 Lumbar Facet Loading Test positive Straight Leg Raise: positive at 30 degrees right side/ left side Gaenslen's Test positive Sacral spine : Severe tenderness over the Sacroiliac joint: right side / left side Range of motion: Flexion of the lumbar spine <60 degrees Range of motion: Extension of the lumbar spine <20 degrees Gaenslen's Test positive Iban test: positive right side / left side Thigh Thrust Test Sacral Thrust Test Assessment and plan: Chronic neck pain secondary to cervical DDD, spondylosis with facet arthropathy without myelopathy Pt received substantial pain relief w prior procedure. She will manage residual pain w home remedies and intermittent use of [place] as needed. She is going camping in [place] w her in 2 wks and is worried she will have a flare up there. May return to the clinic on an as needed basis. Risks, benefits of procedure discussed and pt verbalized understanding. Denies anticoagulant use or medical history of diabetes. All patient questions answered I have spent less than 30 minutes on patient care today. Dr Cheng was available by phone for the evaluation of this patient. The time was used to review the medical records including relevant urine studies and Prescription history (MAPs), review of the available imaging, evaluation and examination of the patient, coordination of care with the medical staff and if applicable referring physicians, as well as creation of the medical record PQRS Narrative: Smoking Status Never smoker Hx Alcohol Use (MH) No Home Medications: Ambulatory Orders Bisoprolol-Hctz 5-6.25 mg [Ziac 5-6.25 MG] 1 tab PO DAILY 07/28/17 DULoxetine HCL [Cymbalta] 60 mg PO DAILY 07/28/17 Multivitamins, Thera [Multivitamin (formulary)] 1 tab PO DAILY 07/28/17 Sennosides-Docusate Sodium [Senokot-S] 2 tab PO DAILY 07/28/17 Aspirin [[place] Aspirin EC] 81 mg PO DAILY 03/30/21 Cholecalciferol [Vitamin D3 (125 Mcg = 5000 Iu)] 125 mcg PO DAILY 03/30/21 Ibuprofen [Motrin] 600 mg PO Q6HR PRN 03/30/21 Rosuvastatin [Crestor] 20 mg PO DAILY 03/30/21 HYDROcodone/APAP 5-325MG [[place] 5-325] 1 tab PO Q4HR PRN 3 Days #18 tab 10/26/21 HYDROcodone/APAP 5-325MG [[place] 5-325] 1 tab PO Q4HR PRN 3 Days #18 tab 05/01/22 Controlled Substance Measures - Controlled Substance Measures Is patient prescribed a controlled substance at discharge?: Yes When asked, does pt state using other controlled substances?: Yes If prescribed controlled substance>3 days was MAPS reviewed?: Prescribed <3 Days If Rx opioid, was Start Talking consent form obtained?: Yes If opioid is for acute pain is fill amount 7 days or less?: Yes Was information provided regarding opioid addiction?: Yes
== END ==
LOC: PNWHC3 13:37
PROVIDERS: ATTEND Specialist
DX: M47.812 Spondylosis without myelopathy or radiculopathy, cervical region (principal); M50.30 Other cervical disc degeneration, unspecified cervical region; Z88.5 Allergy status to narcotic agent
CPT/HCPCS: 99211

== ENCOUNTER → 2022-06-21 | Outpatient (CLI) | payer OTHER ==
--- NOTE | 2022-06-22 07:36 | MR ---
MRI CERVICAL SPINE: CLINICAL HISTORY: Neck pain, stiffness, headaches. Neck pain, stiffness, headaches. Cervical disc deg eneration. TECHNIQUE: Multiplanar, multisequence imaging of the cervical spine is performed without IV contrast. COMPARISON: MRI cervical spine October 25, 2016. Cervical spine x-ray June 19, 2022 FINDINGS: There is levoconvex scoliosis centered in the upper thoracic spine redemonstrated. Sagittal images of the cervical spine show the craniocervical junction to remain within normal limits. The c ervical and upper thoracic spinal cord is normal in caliber and signal. Vertebral alignment is stabl e and satisfactory on sagittal images. The vertebral body and intravertebral disk heights remain nor mal. The bone marrow signal intensity remains within normal limits. Axial images show C2-C3 and C3-C4 levels to remain within normal limits. Axial images at C4-C5 level shows broad-based right paracentral disc protrusion effacing the anterior thecal sac and causing mild right-sided neural foraminal narrowing. No significant change from prior . Axial images at C5-C6 levels with broad-based right paracentral disc protrusion effacing the anterola teral thecal sac, patent bilateral neural foramina. No significant change from prior. Axial images at C6-C7 level show lobulated posterior disc protrusion effacing the anterior thecal sac with patent bilateral neural foramina. No significant change from prior. Axial images at C7-T1 level show focal right paracentral disc protrusion effacing the anterolateral t hecal sac with patent bilateral neural foramina. No significant change from prior. IMPRESSION: Levoconvex scoliosis with multilevel degenerative changes in the mid to lower cervical sp ine as detailed above. No significant change from 2017 MRI.
== END | disposition home or self-care (01) ==
LOC: RADMRIMAIN 19:01
PROVIDERS: ATTEND Physician Assistant Medical
DX: M50.321 Other cervical disc degeneration at C4-C5 level (principal); M47.812 Spondylosis without myelopathy or radiculopathy, cervical region; M41.82 Other forms of scoliosis, cervical region
CPT/HCPCS: 72141

== ENCOUNTER → 2022-06-28 | Outpatient (CLI) | payer OTHER ==
[2022-06-28 11:55] VITALS: BP 147/87; PULSE 65; RESP 18
--- NOTE | 2022-06-28 14:40 | P.PAINPG ---
Objective - Vital Signs Vital signs: Intake & Output 06/27/22 06/28/22 06/28/22 18:59 06:59 18:59 Weight 56.699 kg PQRS Measure Charge Sheet Comment: A 61 yr old female with a history of severe and chronic neck pain secondary to cervical DDD and spondylosis with facet arthropathy without myelopathy presents today for MRI results. Pain level is provoked at 6 /10 in intensity, constant, localized in the cervical spine, dull/ achy in character w shooting towards the BL shoulders and up the head. Pain is provoked by lifting. Pain is alleviated with medications ([place], Ibu), heat, PT x 8 wks in 2019, home guided exercises daily, yoga monthly x 2 mo which she is currently in, reclining, laying supine and rest. Interventional pain procedures completed include IKE C6-C7 x2 Patient is currently on [place], Ibu Patient denies any side effects of the medication(s), denies excessive drowsiness or sleepiness, denies suicidal ideation and reports that the current pain medication is helping to control the pain and improve activities of daily living. Patient denies any motor or sensory deficits. Patient denies any fever or night sweats, denies any change in the bowel movements or urination. Physical Examination: -Constitutional: Cooperative. Not in acute distress . - Neurologic: Cranial nerve II to XII intact. No focal neurological deficits. - Psychatric: Alert & oriented x 3. Matching mood & appropriate affect. Judgment and insight intact. - Musculoskeletal: Cervical spine: Muscle bulk/ tone/ strength in the bilateral upper extremities normal Vertebral body tenderness to palpation over C6 Spurling test positive Distraction test positive Facet loading test positive TTP Thoracic spine Muscle bulk / tone/ strength in the bilateral paraspinal muscles normal Vertebral body tender to palpation over Facet loading test positive TTP Lumbar spine: Motor bulk/ tone/ strength lower extremities , thigh and legs : 5/5 Deep tendon reflexes : Normal Knee Jerk. Normal Ankle Jerk . Vertebral body tenderness to palpation over Lumbar Facet Loading Test positive Straight Leg Raise: positive at 30 degrees right side/ left side Gaenslen's Test positive Sacral spine : Severe tenderness over the Sacroiliac joint: right side / left side Range of motion: Flexion of the lumbar spine <60 degrees Range of motion: Extension of the lumbar spine <20 degrees Gaenslen's Test positive R / L Iban test: positive right side / left side Thigh Thrust Test positive R / L Sacral Thrust Test positive R/ L Imaging: MRI without contrast of the cervical spine from 06/21/22 reviewed Assessment and plan: Chronic neck pain secondary to cervical DDD, spondylosis with facet arthropathy without myelopathy Recommendation of IKE C6-C7 #1. May need a series of injections for optimal pain relief. Risks, benefits of procedure discussed and pt verbalized understanding. Admits to anticoagulant use or medical history of diabetes. Protocol for discontinuation/ continuation of medications joe procedure discussed. All questions answered. I have spent less than 30 minutes on patient care today. Dr Cheng was available by phone for the evaluation of this patient. The time was used to review the medical records including relevant urine studies and Prescription history (MAPs), review of the available imaging, evaluation and examination of the patient, coordination of care with the medical staff and if applicable referring physicians, as well as creation of the medical record PQRS Narrative: Smoking Status Never smoker Hx Alcohol Use (MH) No Home Medications: Ambulatory Orders Bisoprolol-Hctz 5-6.25 mg [Ziac 5-6.25 MG] 1 tab PO DAILY 07/28/17 DULoxetine HCL [Cymbalta] 60 mg PO DAILY 07/28/17 Multivitamins, Thera [Multivitamin (formulary)] 1 tab PO DAILY 07/28/17 Sennosides-Docusate Sodium [Senokot-S] 2 tab PO DAILY 07/28/17 Aspirin [[place] Aspirin EC] 81 mg PO DAILY 03/30/21 Cholecalciferol [Vitamin D3 (125 Mcg = 5000 Iu)] 125 mcg PO DAILY 03/30/21 Ibuprofen [Motrin] 600 mg PO Q6HR PRN 03/30/21 Rosuvastatin [Crestor] 20 mg PO DAILY 03/30/21 HYDROcodone/APAP 5-325MG [[place] 5-325] 1 tab PO Q4HR PRN 3 Days #18 tab 05/01/22 HYDROcodone/APAP 5-325MG [[place] 5-325] 1 tab PO Q4HR PRN 3 Days #18 tab 06/19/22 Controlled Substance Measures - Controlled Substance Measures Is patient prescribed a controlled substance at discharge?: No
== END ==
LOC: PNWHC3 11:08
PROVIDERS: ATTEND Specialist
DX: M50.30 Other cervical disc degeneration, unspecified cervical region (principal); M47.812 Spondylosis without myelopathy or radiculopathy, cervical region; G89.29 Other chronic pain; Z79.82 Long term (current) use of aspirin; Z88.5 Allergy status to narcotic agent
CPT/HCPCS: 99211

== ENCOUNTER 2022-07-20 07:07 | Day surgery (SDC) | payer OTHER ==
[2022-07-20 07:55] VITALS: TEMP 97.3
[2022-07-20] MEDS ORDERED: DEXAMETHASONE SOD PHOSPHATE 10 MG/ML 1 ML VIAL ONE (08:15)
[2022-07-20] MEDS ORDERED: IOPAMIDOL M200 10 ML VIAL ONE (08:15)
[2022-07-20] MEDS ORDERED: MIDAZOLAM 2 MG/2 ML VIAL ONE (08:15)
[2022-07-20] MEDS ORDERED: fentaNYL (PF) 50 MCG/ML 2 ML AMP ONE (08:15)
--- NOTE | 2022-07-20 08:25 | P.PCN ---
Date of Procedure: 07/20/22 Procedure(s) Performed: Procedure= 1. Cervical epidural steroid injection under fluoroscopic guidance, C6-7 (fluoroscopy images available in the radiology department ) 2. Cervical epidurogram. PREOPERATIVE DIAGNOSIS: 1- Cervical Degenerative Disc Diseases 2-cervical spondylosis with cervical Facet arthropathy without myelopathy POSTOPERATIVE DIAGNOSIS: : 1- Cervical Degenerative Disc Diseases , 2-cervical spondylosis with cervical Facet arthropathy without myelopathy ANESTHESIA: Local anesthesia with lidocaine 1 % , and moderate sedation, with Versed 1 mg and Fentanyl 50 mcg. Additionally start time: 818. Sedation end time :822 EBL 0 PROCEDURE INDICATION: The patient with neck pain and radiculitis unresponsive to conservative treatment consents for procedure. PROCEDURE DESCRIPTION / TECHNIQUE: The patient was seen and identified in the pr eoperative area. Risks, benefits, complications, including but not limited to infections ,bleeding , allergic reactions to the medications ,and not complete pain releife, and alternatives were discussed with the patient, the patient agreed to proceed with the procedure and signed the consent. Patient was taken to the OR and time out was completed. The patient was placed in the prone position on the procedure table. A pillow was placed under the patients chest to increase the cervical interlaminar space. The cervical area was prepped and draped in the usual sterile fashion. Vital signs were closely monitored during the procedure. Conscious sedation was used during the procedure to decrease patients anxiety. Using anterior-posterior fluoroscopy, the C6-7 interlaminar space was identified and the skin over this site was marked and then infiltrated with 1% lidocaine subcutaneously. Subsequently, a 20-gauge 3-1/2-inch Tuohy epidural needle was inserted and advanced toward the epidural space by means of the ``hanging-drop technique and guided by AP and lateral fluoroscopy. The correct needle position in the epidural space was verified with the injection of 2 mL of the water solu ble contrast dye [id number] and observing an excellent epidurogram with the epidural spread of the dye, after negative aspiration for blood and CSF and in the absence of paresthesias. then, mixture containing 20 mg Dexamethasone and 2 ml of preservative-free normal saline injected and a washout of epidurogram was seen. Needle was withdrawn intact, skin was cleansed, and bandages were applied. Complications= none. Disposition= patient was placed in supine position and transferred to the recovery room area in stable condition and there was no evidence of upper or lower extremity motor or sensory deficit after the procedure patient was discharged from recovery room after discharge criteria met and home discharge instructions was given by the staff and patient will follow with the pain clinic in 2-4 weeks
[2022-07-20] MEDS ORDERED: IV FLUID CONTINUATION 600 ML IV ONE (08:27)
[2022-07-20 08:30] VITALS: PULSE 70
[2022-07-20 08:48] VITALS: BP 123/78; RESP 17
--- NOTE | 2022-07-20 08:54 | FL ---
Fluoroscopy INDICATION: Pain FINDINGS: Fluoroscopy time: 5 seconds. DAP: 0.34623 mGycm^2 Images obtained: 1. IMPRESSIONS: 1. Documentation of fluoroscopy.
== END 2022-07-20 09:00 | disposition home or self-care (01) ==
LOC: ORPAIN 07:07
PROVIDERS: ATTEND Specialist
DX: M50.123 Cervical disc disorder at C6-C7 level with radiculopathy (principal); M47.22 Other spondylosis with radiculopathy, cervical region; Z88.5 Allergy status to narcotic agent
CPT/HCPCS: 62321; J2250; J1100; J3010; Q9966

== ENCOUNTER → 2022-08-10 | Outpatient (CLI) | payer OTHER ==
[2022-08-10 12:37] VITALS: BP 116/57; PULSE 68; RESP 16; TEMP 98.3
--- NOTE | 2022-08-10 14:59 | P.PAINPG ---
PQRS Measure Charge Sheet Comment: A 61 yr old female with a history of severe and chronic neck pain secondary to cervical DDD and spondylosis with facet arthropathy without myelopathy presents today for evaluation s/p IKE C6-7. Pt states she experienced 65 % pain relief x 3 wks s/p procedure. Pain level is provoked at 4 /10 in intensity, constant, localized in the L cervical spine, cramping in character w/o shooting pain. Pain is provoked by rotation, being in 1 position for periods of 20 min or more. Pain is alleviated with PT 4 mo ago, massage therapy q 3 wks which she is currently in, yoga, medications, laying supine, repositioning and rest. Interventional pain procedures completed include IKE C6-7 x1 Patient is currently on Ibu Patient denies any side effects of the medication(s), denies excessive drowsiness or sleepiness, denies suicidal ideation and reports that the current pain medication is helping to control the pain and improve activities of daily living. Patient denies any motor or sensory deficits. Patient denies any fever or night sweats, denies any change in the bowel movements or urination. Physical Examination: -Constitutional: Cooperative. Not in acute distress . - Neurologic: Cranial nerve II to XII intact. No focal neurological deficits. - Psychatric: Alert & oriented x 3. Matching mood & appropriate affect. Judgment and insight intact. - Musculoskeletal: Cervical spine: Muscle bulk/ tone/ strength in the bilateral upper extremities normal Vertebral body tenderness to palpation over Spurling test positive BL paraspinal TTP Distraction test positive Facet loading test positive TTP Thoracic spine Muscle bulk / tone/ strength in the bilateral paraspinal muscles normal Vertebral body tender to palpation over Facet loading test positive TTP Lumbar spine: Motor bulk/ tone/ strength lower extremities , thigh and legs : 5/5 Deep tendon reflexes : Normal Knee Jerk. Normal Ankle Jerk . Vertebral body tenderness to palpation over Lumbar Facet Loading Test positive Straight Leg Raise: positive at 30 degrees right side/ left side Gaenslen's Test positive Sacral spine : Severe tenderness over the Sacroiliac joint: right side / left side Range of motion: Flexion of the lumbar spine <60 degrees Range of motion: Extension of the lumbar spine <20 degrees Gaenslen's Test positive R / L Iban test: positive right side / left side Thigh Thrust Test positive R / L Sacral Thrust Test positive R/ L Assessment and plan: Chronic neck pain secondary to cervical DDD, spondylosis with facet arthropathy without myelopathy Recommendation of medication mgmt. Flexeril 10mg #30 w 1 RF. Use, side effects, adverse reactions and safe storage discussed. Pt acknowledged understanding. All questions answered. I have spent less than 30 minutes on patient care today. Dr Cheng was available by phone for the evaluation of this patient. The time was used to review the medical records including relevant urine studies and Prescription history (MAPs), review of the available imaging, evaluation and examination of the patient, coordination of care with the medical staff and if applicable referring physicians, as well as creation of the medical record PQRS Narrative: Smoking Status Never smoker Hx Alcohol Use (MH) No Home Medications: Ambulatory Orders Bisoprolol-Hctz 5-6.25 mg [Ziac 5-6.25 MG] 1 tab PO DAILY 07/28/17 DULoxetine HCL [Cymbalta] 60 mg PO DAILY 07/28/17 Multivitamins, Thera [Multivitamin (formulary)] 1 tab PO DAILY 07/28/17 Sennosides-Docusate Sodium [Senokot-S] 2 tab PO HS 07/28/17 Aspirin [[place] Aspirin EC] 81 mg PO DAILY 03/30/21 Cholecalciferol [Vitamin D3 (125 Mcg = 5000 Iu)] 125 mcg PO DAILY 03/30/21 Ibuprofen [Motrin] 600 mg PO Q6HR PRN 03/30/21 Rosuvastatin [Crestor] 20 mg PO HS 03/30/21 HYDROcodone/APAP 5-325MG [[place] 5-325] 1 tab PO Q4HR PRN 3 Days #18 tab 06/19/22 Alendronate Sodium [Fosamax] 70 mg PO TU 07/14/22 Benazepril HCl 10 mg PO DAILY 07/14/22 Calcium Carbonate [Calcium] 1,200 mg PO DAILY 07/14/22 Cyclobenzaprine [Flexeril] 10 mg PO HS PRN 30 Days #30 tab 08/10/22 Controlled Substance Measures - Controlled Substance Measures Is patient prescribed a controlled substance at discharge?: No
== END ==
LOC: PNWHC3 11:09
PROVIDERS: ATTEND Specialist
DX: M50.323 Other cervical disc degeneration at C6-C7 level (principal); G89.29 Other chronic pain; M47.812 Spondylosis without myelopathy or radiculopathy, cervical region; Z79.82 Long term (current) use of aspirin; Z88.5 Allergy status to narcotic agent
CPT/HCPCS: 99211

== ENCOUNTER 2023-02-01 08:00 | Day surgery (SDC) | payer OTHER ==
[~2023-02-01 08:00] MED LIST changes: -LIDOCAINE 1% (10MG/ML) FOR IV START INTRADERMA PRN
[2023-02-01 08:27] VITALS: RESP 20; TEMP 97.4
[2023-02-01] MEDS ORDERED: IOPAMIDOL M200 10 ML VIAL ONE (08:49)
[2023-02-01] MEDS ORDERED: DEXAMETHASONE SOD PHOSPHATE 10 MG/ML 1 ML VIAL ONE (08:49)
--- NOTE | 2023-02-01 08:56 | P.PCN ---
Date of Procedure: 02/01/23 Procedure(s) Performed: Procedure= 1. Cervical epidural steroid injection under fluoroscopic guidance, C6-7 (fluoroscopy images available in the radiology department ) 2. Cervical epidurogram. PREOPERATIVE DIAGNOSIS: 1- Cervical Degenerative Disc Diseases 2-cervical spondylosis with cervical Facet arthropathy without myelopathy POSTOPERATIVE DIAGNOSIS: : 1- Cervical Degenerative Disc Diseases , 2-cervical spondylosis with cervical Facet arthropathy without myelopathy ANESTHESIA: Local anesthesia with lidocaine 1 % 3 ml only. EBL 0 PROCEDURE INDICATION: The patient with neck pain and radiculitis unresponsive to conservative treatment consents for procedure. PROCEDURE DESCRIPTION / TECHNIQUE: The patient was seen and identified in the preoperative area. Risks, benefits, complications, including but not limited to infections ,bleeding , allergic reactions to the medications ,and not complete pain releife, and alternatives were discussed with the patient, the patient agreed to proceed with the procedure and signed the consent. Patient was taken to the OR and time out was completed. The patient was placed in the prone position on the procedure table. A pillow was placed under the patients chest to increase the cervical interlaminar space. The cervical area was prepped and draped in the usual sterile fashion. Vital signs were closely monitored during the procedure. Using anterior-posterior fluoroscopy, the C6-7 interlaminar space was identified and the skin over this site was marked and then infiltrated with 1% lidocaine subcutaneously. Subsequently, a 20-gauge 3-1/2-inch Tuohy epidural needle was inserted and advanced toward the epidural space by means of the ``hanging-drop technique and guided by AP and lateral fluoroscopy. The correct needle position in the epidural space was verified with the injection of 2 mL of the water soluble contrast dye Isovue-200 and observing an excellent epidurogram with the epidural spread of the dye, after negative aspiration for blood and CSF and in the absence of paresthesias. then, mixture containing 20 mg Dexamethasone and 2 ml of preservative-free normal saline injected and a washout of epidurogram was seen. Needle was withdrawn intact, skin was cleansed, and bandages were applied. Complications= none. Disposition= patient was placed in supine position and transferred to the recovery room area in stable condition and there was no evidence of upper or lower extremity motor or sensory deficit after the procedure patient was discharged from recovery room after discharge criteria met and home discharge instructions was given by the staff and patient will follow with the pain clinic in 2-4 weeks
--- NOTE | 2023-02-01 09:08 | FL ---
Intraoperative/procedural fluoroscopic services were provided for cervical epidural steroid injection . Total fluoroscopy time is 2.1 seconds with a total of 1 submitted image to PACS. Total DAP [id number] mGym2. Please see the operative note for further details.
[2023-02-01 09:28] VITALS: BP 120/68; PULSE 57
== END 2023-02-01 09:16 ==
LOC: ORPAIN 08:00
PROVIDERS: ATTEND Specialist
DX: M50.123 Cervical disc disorder at C6-C7 level with radiculopathy (principal); M47.22 Other spondylosis with radiculopathy, cervical region; Z88.5 Allergy status to narcotic agent; Z79.82 Long term (current) use of aspirin
CPT/HCPCS: 62321; J1100; Q9966

== ENCOUNTER → 2023-02-12 | Outpatient (CLI) | payer OTHER ==
--- NOTE | 2023-02-13 18:44 | MM ---
Reason for Exam: Screening (asymptomatic). Last mammogram was performed 1 year(s) and 1 month(s) ago. Patient History: Menarche at age 11. First Full-Term at age 28. Hysterectomy at age 51. Postmenopausal. Patient has history of breast feeding. Patient used Hormonal Contraceptives for 15 years. Risk Values: Ebonie 5 year model risk: 1.9%. NCI Lifetime model risk: 8.4%. Prior Study Comparison: 12/23/2019 Bilateral Screening Mammogram, [facility]. 01/13/2021 Bilateral Screening Mammogram, [facility]. 02/06/2022 Bilateral MG 3D screening mammo w/cad, [facility]. Tissue Density: There are scattered fibroglandular densities. Findings: Analyzed By CAD. Unchanged bilateral areas of asymmetric density. There is no suspicious group of microcalcifications or new suspicious mass in either breast. Overall Assessment: Benign, BI-RAD 2 Management: Screening Mammogram of both breasts in 1 year. . Patient should continue monthly self-breast exams. A clinical breast exam by your physician is recommended on an annual basis. This exam should not preclude additional follow-up of suspicious palpable abnormalities. Note on Ebonie scores and lifetime risk: 1. A Ebonie score greater than 3% is considered moderate risk. If this is the case, consider specialist referral to assess eligibility for a risk reducing agent. 2. If overall lifetime risk for the development of breast cancer is 20% or higher, the patient may qualify for future screening with alternating mammogram and breast MRI. Electronically signed and approved by: Eugenia Castillo M.D. Radiologist
== END | disposition home or self-care (01) ==
LOC: RADMAMWWP 16:38
PROVIDERS: ATTEND Obstetrics & Gynecology
DX: Z12.31 Encounter for screening mammogram for malignant neoplasm of breast (principal); Z78.0 Asymptomatic menopausal state
CPT/HCPCS: 77063; 77067

== ENCOUNTER → 2023-02-21 | Outpatient (CLI) | payer OTHER ==
[2023-02-21 08:52] VITALS: BP 112/76; PULSE 69; RESP 15; TEMP 98.5
--- NOTE | 2023-02-21 14:39 | P.PAINPG ---
PQRS Measure Charge Sheet Comment: A 62 yr old female with a history of severe and chronic neck pain secondary to cervical DDD and spondylosis with facet arthropathy without myelopathy presents today for evaluation s/p IKE C6-C7 #3. Pt states she experienced 50% pain relief x 1 wks s/p procedure. Pain level is provoked at 6 /10 in intensity, constant, localized in the cervical spine, predominantly axial, cramping in character without shooting pain. Pain is provoked by sitting in a vehicle for periods of 30 min or more. Pain is alleviated with PT 4 mo ago, massage therapy q 3 wks which she is currently in, use of a C collar, yoga, medications, laying supine, repositioning and rest. Cervical disability score of 8. Interventional pain procedures completed include IKE C6-7 x3 Patient is currently on Ibu, [place], Voltaren gel Patient denies any side effects of the medication(s), denies excessive drowsiness or sleepiness, denies suicidal ideation and reports that the current pain medication is helping to control the pain and improve activities of daily living. Patient denies any motor or sensory deficits. Patient denies any fever or night sweats, denies any change in the bowel movements or urination. Physical Examination: -Constitutional: Cooperative. Not in acute distress . - Neurologic: Cranial nerve II to XII intact. No focal neurological deficits. - Psychatric: Alert & oriented x 3. Matching mood & appropriate affect. Judgment and insight intact. - Musculoskeletal: Cervical spine: Muscle bulk/ tone/ strength in the bilateral upper extremities normal Vertebral body tenderness to palpation Spurling test positive Distraction test positive Facet loading test positive TTP over BL C4-C5, C5-C6 Thoracic spine Muscle bulk / tone/ strength in the bilateral paraspinal muscles normal Vertebral body tender to palpation over Facet loading test positive TTP Lumbar spine: Motor bulk/ tone/ strength lower extremities , thigh and legs : 5/5 Deep tendon reflexes : Normal Knee Jerk. Normal Ankle Jerk . Vertebral body tenderness to palpation over Lumbar Facet Loading Test positive Straight Leg Raise: positive at 30 degrees right side/ left side Gaenslen's Test positive Sacral spine : Severe tenderness over the Sacroiliac joint: right side / left side Range of motion: Flexion of the lumbar spine <60 degrees Range of motion: Extension of the lumbar spine <20 degrees Gaenslen's Test positive R / L Iban test: positive right side / left side Thigh Thrust Test positive R / L Sacral Thrust Test positive R/ L Assessment and plan: Chronic neck pain secondary to cervical DDD, spondylosis with facet arthropathy without myelopathy Recommendation of BL MBB C4-C5, C5-C6 #1. May need a series of injections, up until RFA, for optimal pain relief. Risks, benefits of procedure discussed and pt verbalized understanding. Protocol for continuation/ discontinuation of medications surrounding procedure discussed. All questions answered. I have spent less than 30 minutes on patient care today. Dr Cheng was available by phone for the evaluation of this patient. The time was used to review the medical records including relevant urine studies and Prescription history (MAPs), review of the available imaging, evaluation and examination of the patient, coordination of care with the medical staff and if applicable referring physicians, as well as creation of the medical record - Pain Location Bilateral Neck Non-Pharmacological Interventions: Heat, Ice, Inactivity, Relaxation Technique, Sitting Pharmacological Interventions: Epidural, Medication, PRN Medication PQRS Narrative: Smoking Status Never smoker Hx Alcohol Use (MH) No Home Medications: Ambulatory Orders Bisoprolol-Hctz 5-6.25 mg [Ziac 5-6.25 MG] 1 tab PO DAILY 07/28/17 DULoxetine HCL [Cymbalta] 60 mg PO DAILY 07/28/17 Multivitamins, Thera [Multivitamin (formulary)] 1 tab PO DAILY 07/28/17 Sennosides-Docusate Sodium [Senokot-S] 2 tab PO HS 07/28/17 Aspirin [[place] Aspirin EC] 81 mg PO DAILY 03/30/21 Cholecalciferol [Vitamin D3 (125 Mcg = 5000 Iu)] 125 mcg PO DAILY 03/30/21 Ibuprofen [Motrin] 600 mg PO Q6HR PRN 03/30/21 Rosuvastatin [Crestor] 20 mg PO HS 03/30/21 Alendronate Sodium [Fosamax] 70 mg PO TU 07/14/22 Benazepril HCl 10 mg PO DAILY 07/14/22 Calcium Carbonate [Calcium] 1,200 mg PO DAILY 07/14/22 HYDROcodone/APAP 5-325MG [[place] 5-325] 1 tab PO Q4HR PRN 3 Days #18 tab 01/08/23 diazePAM [Valium] 5 mg PO Q24H PRN 1 Days #2 tab 01/08/23 Controlled Substance Measures - Controlled Substance Measures Is patient prescribed a controlled substance at discharge?: No
== END ==
LOC: PNWHC3 07:43
PROVIDERS: ATTEND Specialist
DX: M50.321 Other cervical disc degeneration at C4-C5 level (principal); M50.322 Other cervical disc degeneration at C5-C6 level; M47.812 Spondylosis without myelopathy or radiculopathy, cervical region; G89.29 Other chronic pain; Z88.5 Allergy status to narcotic agent; Z79.82 Long term (current) use of aspirin
CPT/HCPCS: 99211

== ENCOUNTER 2023-03-08 07:19 | Day surgery (SDC) | payer OTHER ==
[2023-03-08 07:54] LABS: Glucose,Whole Blood 115 mg/dL (70-110)
[2023-03-08 08:03] VITALS: TEMP 97.9
[2023-03-08] MEDS ORDERED: MIDAZOLAM 2 MG/2 ML VIAL ONE (08:22)
[2023-03-08] MEDS ORDERED: fentaNYL (PF) 50 MCG/ML 2 ML AMP ONE (08:22)
[2023-03-08] MEDS ORDERED: ROPIVACAINE 5MG/ML 20ML VIAL ONE (08:22)
[2023-03-08] MEDS ORDERED: methylPREDNISolone ACETATE 40 MG/ML 1 ML VIAL ONE (08:22)
--- NOTE | 2023-03-08 08:48 | P.PCN ---
Date of Procedure: 03/08/23 Procedure(s) Performed: PREOPERATIVE DIAGNOSIS: 1-Cervical Spondylosis with Facet Arthropathy.without myelopathy. 2-cervical degenerative disc disease POSTOPERATIVE DIAGNOSIS:1-cervical spondylosis with facet arthropathy without myelopathy. 2-cervical degenerative disc disease PROCEDURES: Diagnostic bilateral C4 , C5 , and C6 medial branch blocks, with fluoroscopic guidance (fluoroscopy images available in radiology department ) ( to target the facet joint at bilateral C4- 5 , C5- 6 )# 1St ANESTHESIA: moderate sedation with Versed 2 mg , and fentanyl 100 micrograms (sedation was started 0826, end at 08:44 ) EBL: Minimal PROCEDURE INDICATION: The patient with neck pain secondary to cervical arthropathy unresponsive to more conservative treatments. PROCEDURE DESCRIPTION / TECHNIQUE: The patient was seen and identified in the preoperative area. Risks, benefits, complications, and alternatives were discussed with the patient, the patient agreed to proceed with the procedure and signed the consent. IV was started. Vital signs remained stable throughout the procedure. Patient was taken to the OR and time out was completed. The patient was placed in the prone position on the procedure table. A pillow was placed under the patients chest to increase the cervical interlaminar space. The cervical area was prepped and draped in the usual sterile fashion. Critical pause was taken. Vital signs were closely monitored during the procedure. Conscious sedation was used during the procedure to decrease patients anxiety. Using cross-table lateral fluoroscopy, the centroid of the trapezoid of right C4 , C5 and C6, was identified, marked, and localized with 1% lidocaine 1 ml at each level for skin and Sub Q infiltrations . Subsequently, a 22 G 3 spinal needle was advanced guided by fluoroscopy to the centroid of the trapezoid of Right C4 , C5, C6 . [place] tip position was confirmed at the centroid of the trapezoids of Right C4 , C5 ,C6 with anteroposterior fluoroscopy. Subsequently, 1.5 ml of preservative-free Ropivacaine 0.5% mixed with Depo- Medrol 20 mg and half ml of the mixture was injected after negative aspiration for blood and CSF. [place] was then removed intact the same procedure was repeated at the left C4 , C5 , and C6 levels. COMPLICATIONS: No acute complications. DISPOSITION / PLANS: The patient was placed in a supine position and transferred to the recovery area in a stable condition for observation and was discharged from the recovery room after meeting discharge criteria. Home discharge instructions given to the patient by the staff. The patient was reexamined prior to discharge. The patient will schedule a follow up in the clinic in 2-4 weeks.
[2023-03-08] MEDS ORDERED: IV FLUID CONTINUATION 1,000 ML IV ONE ×2 (08:51)
[2023-03-08 09:14] VITALS: RESP 16
--- NOTE | 2023-03-08 09:15 | FL ---
Fluoroscopy History: FACET BLOCK bilat cervical facets 3 levels, 14sec fl time, DAP=.[id number]
[2023-03-08 09:38] VITALS: BP 112/66; PULSE 70
== END 2023-03-08 09:42 | disposition home or self-care (01) ==
LOC: ORPAIN 07:19
PROVIDERS: ATTEND Specialist
DX: M50.30 Other cervical disc degeneration, unspecified cervical region (principal); M47.812 Spondylosis without myelopathy or radiculopathy, cervical region; Z88.5 Allergy status to narcotic agent; Z79.82 Long term (current) use of aspirin
CPT/HCPCS: 64490; 64491 ×2; 99152; 99153; J2250; J1030; J3010; J2795

== ENCOUNTER → 2023-03-13 | Outpatient (CLI) | payer OTHER ==
--- NOTE | 2023-03-13 12:28 | P.PAINPG ---
PQRS Measure Charge Sheet Comment: A 62 yr old female with a history of severe and chronic neck pain secondary to cervical DDD and spondylosis with facet arthropathy without myelopathy presents today for evaluation s/p BL MBB C4-C5, C5-C6 #1. Pt states she experienced 100 % pain relief x 1 wk s/p procedure. Pain level is provoked at 6 /10 in intensity, constant, predominantly axial, localized in the cervical spine, cramping in character without shooting pain. Pain is provoked by rotation or hyperextension. Pain is alleviated with PT 4 mo ago, massage therapy q 3 wks which she is currently in, use of a C collar, yoga, medications, laying supine, repositioning and rest. Cervical disability score of 7. Interventional pain procedures completed include IKE C6-7 x3, BL MBB C4_C6 x1 Patient is currently on Ibu, [place], Voltaren gel Patient denies any side effects of the medication(s), denies excessive drowsiness or sleepiness, denies suicidal ideation and reports that the current pain medication is helping to control the pain and improve activities of daily living. Patient denies any motor or sensory deficits. Patient denies any fever or night sweats, denies any change in the bowel movements or urination. Physical Examination: -Constitutional: Cooperative. Not in acute distress . - Neurologic: Cranial nerve II to XII intact. No focal neurological deficits. - Psychatric: Alert & oriented x 3. Matching mood & appropriate affect. Judgment and insight intact. - Musculoskeletal: Cervical spine: Muscle bulk/ tone/ strength in the bilateral upper extremities normal Vertebral body tenderness to palpation Spurling test positive Distraction test positive Facet loading test positive TTP over BL C4-C5, C5-C6 Thoracic spine Muscle bulk / tone/ strength in the bilateral paraspinal muscles normal Vertebral body tender to palpation over Facet loading test positive TTP Lumbar spine: Motor bulk/ tone/ strength lower extremities , thigh and legs : 5/5 Deep tendon reflexes : Normal Knee Jerk. Normal Ankle Jerk . Vertebral body tenderness to palpation over Lumbar Facet Loading Test positive Straight Leg Raise: positive at 30 degrees right side/ left side Gaenslen's Test positive Sacral spine : Severe tenderness over the Sacroiliac joint: right side / left side Range of motion: Flexion of the lumbar spine <60 degrees Range of motion: Extension of the lumbar spine <20 degrees Gaenslen's Test positive R / L Iban test: positive right side / left side Thigh Thrust Test positive R / L Sacral Thrust Test positive R/ L Assessment and plan: Chronic neck pain secondary to cervical DDD, spondylosis with facet arthropathy without myelopathy Recommendation of BL MBB C4-C5, C5-C6 #2. May need a series of injections, up until RFA, for optimal pain relief. Risks, benefits of procedure discussed and pt verbalized understanding. Protocol for continuation/ discontinuation of medications surrounding procedure discussed. All questions answered. I have spent less than 30 minutes on patient care today. Dr Cheng was available by phone for the evaluation of this patient. The time was used to review the medical records including relevant urine studies and Prescription history (MAPs), review of the available imaging, evaluation and examination of the patient, coordination of care with the medical staff and if applicable referring physicians, as well as creation of the medical record PQRS Narrative: Smoking Status Never smoker Hx Alcohol Use (MH) No Home Medications: Ambulatory Orders Bisoprolol-Hctz 5-6.25 mg [[place] 5-6.25 MG] 1 tab PO DAILY 07/28/17 DULoxetine HCL [Cymbalta] 60 mg PO DAILY 07/28/17 Multivitamins, Thera [Multivitamin (formulary)] 1 tab PO DAILY 07/28/17 Sennosides-Docusate Sodium [Senokot-S] 2 tab PO HS 07/28/17 Aspirin [[place] Aspirin EC] 81 mg PO DAILY 03/30/21 Cholecalciferol [Vitamin D3 (125 Mcg = 5000 Iu)] 125 mcg PO DAILY 03/30/21 Ibuprofen [Motrin] 600 mg PO Q6HR PRN 03/30/21 Rosuvastatin [Crestor] 20 mg PO HS 03/30/21 Alendronate Sodium [Fosamax] 70 mg PO TU 07/14/22 Benazepril HCl 10 mg PO DAILY 07/14/22 Calcium Carbonate [Calcium] 1,200 mg PO DAILY 07/14/22 HYDROcodone/APAP 5-325MG [[place] 5-325] 1 tab PO Q4HR PRN 3 Days #18 tab 01/08/23 Controlled Substance Measures - Controlled Substance Measures Is patient prescribed a controlled substance at discharge?: No
[2023-03-13 12:40] VITALS: BP 126/82; PULSE 61; RESP 16; TEMP 98.5
== END ==
LOC: PNWHC3 12:01
PROVIDERS: ATTEND Specialist
DX: M50.321 Other cervical disc degeneration at C4-C5 level (principal); M50.322 Other cervical disc degeneration at C5-C6 level; M47.812 Spondylosis without myelopathy or radiculopathy, cervical region; G89.29 Other chronic pain; Z79.82 Long term (current) use of aspirin; Z88.5 Allergy status to narcotic agent
CPT/HCPCS: 99211

== ENCOUNTER 2023-03-23 07:24 | Day surgery (SDC) | payer OTHER ==
[2023-03-23] MEDS ORDERED: LACTATED RINGERS 1,000 ML IV SCH ×2 (07:38)
[2023-03-23] MEDS ORDERED: LIDOCAINE 1% (10MG/ML) FOR IV START INTRADERMA PRN (07:38)
[2023-03-23 08:01] VITALS: RESP 16; TEMP 97.2
[2023-03-23] MEDS ORDERED: MIDAZOLAM 2 MG/2 ML VIAL ONE (08:38)
[2023-03-23] MEDS ORDERED: fentaNYL (PF) 50 MCG/ML 2 ML AMP ONE (08:38)
[2023-03-23] MEDS ORDERED: ROPIVACAINE 5MG/ML 20ML VIAL ONE (08:43)
[2023-03-23] MEDS ORDERED: LACTATED RINGERS 1,000 ML IV ONE (09:10)
--- NOTE | 2023-03-23 09:18 | P.PCN ---
Description of Procedure: Preprocedure diagnosis. Cervical facet joint arthropathy, cervical spine spondylosis, cervical degenerative disc disease. Postprocedure diagnosis. As above. Procedure done. Bilateral C4-5, C5-6 facet joint (C4, C5, C6 medial branch of dorsal ramus) diagnostic injection with local anesthetics under fluoroscopic guidance. Anesthesia. As per anesthesia department. Blood loss. None. Indication. Patient has got the diagnoses of cervical spondylolysis, facet joint arthropathy with neck pain. Discussed with the patient procedure, alternatives, complications including infection, bleeding, nerve damage, paralysis all of which could be permanent. Patient understands and all questions are answered. Procedure note. After getting consent patient in OR in prone position. Back of the neck was prepped with chlorhexidine and draped in sterile fashion. After injecting 3 mL of plain 1% lidocaine subcutaneously, a 22-gauge spinal needle was introduced under tunnel vision of the fluoroscope AP view at the waist of the articular pillar (lateral mass) at C4 vertebral level. In the lateral view of the fluoroscope it was confirmed that the tip of the needle stayed within the dorsal half of the articular pillar (lateral mass). So, right C4-5 facet joint was targeted by blocking right C4 and C5 medial branch, right C5-6 facet joint was targeted by blocking right C5 and C6 medial branch. In exactly the same way , after subcutaneous injection of lidocaine, 22-gauge spinal needles were introduced under tunnel vision of the fluoroscope AP view at the waist of the articular pillars (lateral mass) at C5 and C6 vertebral level. In the lateral view of the fluoroscope it was confirmed that the tip of the needle stayed within the dorsal half of the articular pillar (lateral mass). At each needle, 0.5 mL of 0.5% ropivacaine preservative-free was injected. In exactly same way left C4-5, C5-6 facet joints were targeted by blocking left C4, C5, C6 medial branch of dorsal ramus. After the procedure needle was taken out and bandage was applied. Disposition. Patient tolerated the procedure well. No complication. Discharged home in stable condition.
[2023-03-23 09:43] VITALS: BP 133/80; PULSE 77
--- NOTE | 2023-03-23 10:11 | FL ---
Intraoperative/procedural fluoroscopic services were provided. Total fluoroscopy time is 3 seconds wi th a total of 2 submitted images to PACS. Please see the operative/procedural note for further detail s. DAP: [id number] mGym2 Gycm2
== END 2023-03-23 09:36 | disposition home or self-care (01) ==
LOC: ORPAIN 07:24
PROVIDERS: ATTEND Pain Medicine Interventional Pain Medicine
DX: M50.322 Other cervical disc degeneration at C5-C6 level (principal); M47.812 Spondylosis without myelopathy or radiculopathy, cervical region; E78.5 Hyperlipidemia, unspecified; Z88.5 Allergy status to narcotic agent; Z98.890 Other specified postprocedural states; Z79.82 Long term (current) use of aspirin; Z79.899 Other long term (current) drug therapy
CPT/HCPCS: 64490; 64491 ×2; J2250; J3010; J2795

== ENCOUNTER → 2023-04-12 | Outpatient (CLI) | payer OTHER ==
[2023-04-12 12:14] VITALS: BP 135/85; PULSE 62; RESP 16; TEMP 98.4
--- NOTE | 2023-04-12 13:26 | P.PAINPG ---
PQRS Measure Charge Sheet Comment: A 62 yr old female with a history of severe and chronic neck pain secondary to cervical DDD and spondylosis with facet arthropathy without myelopathy presents today for evaluation s/p BL MBB C4-C5, C5-C6 #2. Pt states she experienced 100 % pain relief x 1 day s/p procedure. Pain level is provoked at 6 /10 in intensity, constant, predominantly axial, localized in the cervical spine, cramping in character without shooting pain. Pain is provoked by rotation or hyperextension. Pain is alleviated slightly with PT 4 mo ago, massage therapy q 3 wks which she is currently in, alternating heat & ice, use of a C collar, yoga, medications, laying supine, repositioning and rest. Cervical disability score of 7. Interventional pain procedures completed include IKE C6-7 x3, BL MBB C4-C6 x2 Patient is currently on Ibu, [place], Voltaren gel Patient denies any side effects of the medication(s), denies excessive d rowsiness or sleepiness, denies suicidal ideation and reports that the current pain medication is helping to control the pain and improve activities of daily living. Patient denies any motor or sensory deficits. Patient denies any fever or night sweats, denies any change in the bowel movements or urination. Physical Examination: -Constitutional: Cooperative. Not in acute distress . - Neurologic: Cranial nerve II to XII intact. No focal neurological deficits. - Psychatric: Alert & oriented x 3. Matching mood & appropriate affect. Judgment and insight intact. - Musculoskeletal: Cervical spine: Muscle bulk/ tone/ strength in the bilateral upper extremities normal Vertebral body tenderness to palpation Spurling test positive Distraction test positive Facet loading test positive TTP over BL C4-C5, C5-C6 Thoracic spine Muscle bulk / tone/ strength in the bilateral paraspinal muscles normal Vertebral body tender to palpation over Facet loading test positive TTP Lumbar spine: Motor bulk/ tone/ strength lower extremities , thigh and legs : 5/5 Deep tendon reflexes : Normal Knee Jerk. Normal Ankle Jerk . Vertebral body tenderness to palpation over Lumbar Facet Loading Test positive Straight Leg Raise: positive at 30 degrees right side/ left side Gaenslen's Test positive Sacral spine : Severe tenderness over the Sacroiliac joint: right side / left side Range of motion: Flexion of the lumbar spine <60 degrees Range of motion: Extension of the lumbar spine <20 degrees Gaenslen's Test positive R / L Iban test: positive right side / left side Thigh Thrust Test positive R / L Sacral Thrust Test positive R/ L Assessment and plan: Chronic neck pain secondary to cervical DDD, spondylosis with facet arthropathy without myelopathy Recommendation of BL RFA C4-C5, C5-C6. Exhibited optimal pain relief w previous MBB procedures. Risks, benefits of procedure discussed and pt verbalized understanding. Protocol for continuation/ discontinuation of medications surrounding procedure discussed. Minimal anesthesia including Versed and Fentanyl may be provided. All questions answered. I have spent less than 30 minutes on patient care today. Dr Cheng was available by phone for the evaluation of this patient. The time was used to review the medical records including relevant urine studies and Prescription history (MAPs), review of the available imaging, evaluation and examination of the patient, coordination of care with the medical staff and if applicable referring physicians, as well as creation of the medical record PQRS Narrative: Smoking Status Never smoker Hx Alcohol Use (MH) No Home Medications: Ambulatory Orders Bisoprolol-Hctz 5-6.25 mg [Ziac 5-6.25 MG] 1 tab PO DAILY 07/28/17 DULoxetine HCL [Cymbalta] 60 mg PO DAILY 07/28/17 Multivitamins, Thera [Multivitamin (formulary)] 1 tab PO DAILY 07/28/17 Sennosides-Docusate Sodium [Senokot-S] 2 tab PO HS 07/28/17 Aspirin [[place] Aspirin EC] 81 mg PO DAILY 03/30/21 Cholecalciferol [Vitamin D3 (125 Mcg = 5000 Iu)] 125 mcg PO DAILY 03/30/21 Ibuprofen [Motrin] 600 mg PO Q6HR PRN 03/30/21 Rosuvastatin [Crestor] 20 mg PO HS 03/30/21 Alendronate Sodium [Fosamax] 70 mg PO TU 07/14/22 Benazepril HCl 10 mg PO DAILY 07/14/22 Calcium Carbonate [Calcium] 1,200 mg PO DAILY 07/14/22 HYDROcodone/APAP 5-325MG [[place] 5-325] 1 tab PO Q4HR PRN 3 Days #15 tab 04/12/23 Controlled Substance Measures - Controlled Substance Measures Is patient prescribed a controlled substance at discharge?: Yes When asked, does pt state using other controlled substances?: No If prescribed controlled substance>3 days was MAPS reviewed?: Prescribed <3 Days
== END ==
LOC: PNWHC3 09:16
PROVIDERS: ATTEND Specialist
DX: M47.812 Spondylosis without myelopathy or radiculopathy, cervical region (principal); M50.30 Other cervical disc degeneration, unspecified cervical region; G89.29 Other chronic pain; Z88.5 Allergy status to narcotic agent; Z79.82 Long term (current) use of aspirin
CPT/HCPCS: 99211

== ENCOUNTER 2023-05-01 06:40 | Day surgery (SDC) | payer OTHER ==
[2023-04-24 15:23] VITALS: BMI 19.6
[2023-05-01] MEDS ORDERED: LACTATED RINGERS 1,000 ML IV SCH (07:09)
[2023-05-01 07:50] VITALS: TEMP 97.3
[2023-05-01] MEDS ORDERED: ROPIVACAINE 5MG/ML 20ML VIAL ONE (08:09)
[2023-05-01] MEDS ORDERED: fentaNYL (PF) 50 MCG/ML 2 ML AMP ONE (08:09)
[2023-05-01] MEDS ORDERED: MIDAZOLAM 2 MG/2 ML VIAL ONE (08:09)
[2023-05-01] MEDS ORDERED: methylPREDNISolone ACETATE 40 MG/ML 1 ML VIAL ONE (08:09)
--- NOTE | 2023-05-01 08:37 | P.PCN ---
Date of Procedure: 05/01/23 Procedure(s) Performed: PREOPERATIVE DIAGNOSIS: Cervical spondylosis with Facet Arthropathy without myelopathy. POSTOPERATIVE DIAGNOSIS: Cervical spondylosis with Facet Arthropathy without myelopathy. PROCEDURES: Radiofrequency thermocoagulation,Left C4, C5, C6 medial branch with Fluroscopy [place](fluoroscopy was available in Radiology department ) (to denervate the facet joint at Left C4- 5 , C5- 6 ) ANESTHESIA: moderate sedation with fentanyl 100 micrograms and Versed 2 mg ( sedations started at 08:09 , ended at 08:32 ) EBL: Minimal PROCEDURE INDICATION: The patient with neck pain secondary to cervical arthropathy who had more than 80% relief of her pain with previous diagnostic cervical medial branch block. PROCEDURE DESCRIPTION / TECHNIQUE: The patient was seen and identified in the preoperative area. Risks, benefits, complications, and alternatives were discussed with the patient, the patient agreed to proceed with the procedure and signed the consent. IV was started. Vital signs remained stable throughout the procedure. Patient was taken to the OR and time out was completed. The patient was placed in the prone position on the procedure table. A pillow was placed under the patients chest to increase the cervical interlaminar space. The cervical area was prepped and draped in the usual sterile fashion. Critical pause was taken. Vital signs were closely monitored during the procedure. Conscious sedation was used during the procedure to decrease patients anxiety. Using cross-table lateral fluoroscopy, the centroid of the trapezoid of left C4, C5, and C6 were identified, marked, and localized with 1% lidocaine. Subseq uently, a 20 [id number] radiofrequency cannula with a 10-mm active tip was advanced guided by fluoroscopy to the centroid of the trapezoid of left C4, C5, and C6 . Needle tip position was confirmed at the centroid of the trapezoids of left C4, C5, and C6 with anteroposterior fluoroscopy. Each site then underwent sensory testing at 50 Hz and 0 to 1 volt and motor testing at 2 Hz and 0 to 3 volt with local stimulation, but no radicular symptoms down the arm. Thereafter each sites underwent radiofrequency thermocoagulation at 80 degrees celsius for 90 seconds after injecting 0.5 ml of PF Ropivacaine 0.5 %. After thermocoagulation, 1 ml of the block solution containing Depo-Medrol 40 mg and 3 mL of preservative-free normal saline was injected at the left C4, C5, and C6 levels after negative aspiration of CSF and blood and with no paresthesias. Cannulas were removed intact . Skin was cleansed and bandages were applied. COMPLICATIONS: No acute complications. DISPOSITION / PLANS: The patient was placed in a supine position and transferred to the recovery area in a stable condition for observation and was discharged from the recovery room after meeting discharge criteria. Home disch arge instructions given to the patient by the staff. The patient was reexamined prior to discharge. The patient will schedule a follow up in the clinic in 2-4 weeks. Description with the scheduled to have the RFA on the right side at C4-5, and C5-6 in the next 1-2 weeks
[2023-05-01] MEDS ORDERED: IV FLUID CONTINUATION 300 ML IV ONE (08:45)
--- NOTE | 2023-05-01 08:49 | FL ---
EXAMINATION TYPE: FL guided pain mgmt statistic Intraoperative/procedural fluoroscopic services were provided. Total fluoroscopy time is 25.7 seconds with a total of 6 submitted images to PACS. Please s ee the operative/procedural note for further details. DAP: [id number] mGym2
[2023-05-01 09:08] VITALS: BP 121/76; PULSE 72; RESP 16
== END 2023-05-01 09:13 | disposition home or self-care (01) ==
LOC: ORPAIN 06:40
PROVIDERS: ATTEND Specialist
DX: M47.812 Spondylosis without myelopathy or radiculopathy, cervical region (principal); Z79.82 Long term (current) use of aspirin; Z88.5 Allergy status to narcotic agent
CPT/HCPCS: 64633; 64634; 99152; J2250; J1030; J3010; J2795; 99153

== ENCOUNTER 2023-05-08 06:43 | Day surgery (SDC) | payer OTHER ==
[2023-05-02 13:42] VITALS: BMI 19.6
[2023-05-08 07:20] VITALS: RESP 16; TEMP 97.8
[2023-05-08] MEDS ORDERED: fentaNYL (PF) 50 MCG/ML 2 ML AMP ONE (07:45)
[2023-05-08] MEDS ORDERED: methylPREDNISolone ACETATE 40 MG/ML 1 ML VIAL ONE (07:45)
[2023-05-08] MEDS ORDERED: ROPIVACAINE 5MG/ML 20ML VIAL ONE (07:45)
[2023-05-08] MEDS ORDERED: MIDAZOLAM 2 MG/2 ML VIAL ONE (07:45)
--- NOTE | 2023-05-08 08:04 | P.PCN ---
Date of Procedure: 05/08/23 Procedure(s) Performed: PREOPERATIVE DIAGNOSIS: Cervical spondylosis with Facet Arthropathy without myelopathy. POSTOPERATIVE DIAGNOSIS: Cervical spondylosis with Facet Arthropathy without myelopathy. PROCEDURES: Radiofrequency thermocoagulation,Right C4, C5, C6 medial branch with Fluroscopy [place](fluoroscopy was available in Radiology department ) (to denervate the facet joint at Right C4- 5 , C5- 6 ) ANESTHESIA: moderate sedation with fentanyl 100 micrograms and Versed 2 mg ( sedations started at 07:45 , ended at 08:01 ) EBL: Minimal PROCEDURE INDICATION: The patient with neck pain secondary to cervical arthropathy who had more than 80% relief of her pain with previous diagnostic cervical medial branch block. PROCEDURE DESCRIPTION / TECHNIQUE: The patient was seen and identified in the preoperative area. Risks, benefits, complications, and alternatives were discussed with the patient, the patient agreed to proceed with the procedure and signed the consent. IV was started. Vital signs remained stable throughout the procedure. Patient was taken to the OR and time out was completed. The patient was placed in the prone position on the procedure table. A pillow was placed under the patients chest to increase the cervical interlaminar space. The cervical area was prepped and draped in the usual sterile fashion. Critical pause was taken. Vital signs were closely monitored during the procedure. Conscious sedation was used during the procedure to decrease patients anxiety. Using cross-table lateral fluoroscopy, the centroid of the trapezoid of Right C4, C5, and C6 were identified, marked, and localized with 1% lidocaine. Sub sequently, a 20 [id number] radiofrequency cannula with a 10-mm active tip was advanced guided by fluoroscopy to the centroid of the trapezoid of Right C4, C5, and C6 . Needle tip position was confirmed at the centroid of the trapezoids of Right C4, C5, and C6 with anteroposterior fluoroscopy. Each site then underwent sensory testing at 50 Hz and 0 to 1 volt and motor testing at 2 Hz and 0 to 3 volt with local stimulation, but no radicular symptoms down the arm. Thereafter each sites underwent radiofrequency thermocoagulation at 80 degrees celsius for 90 seconds after injecting 0.5 ml of PF Ropivacaine 0.5 %. After thermocoagulation, 1 ml of the block solution containing Depo-Medrol 40 mg and 3 mL of preservative-free normal saline was injected at the Right C4, C5, and C6 levels after negative aspiration of CSF and blood and with no paresthesias. Cannulas were removed intact . Skin was cleansed and bandages were applied. COMPLICATIONS: No acute complications. DISPOSITION / PLANS: The patient was placed in a supine position and transferred to the recovery area in a stable condition for observation and was discharged from the recovery room after meeting discharge criteria. Home discharge instructions given to the patient by the staff. The patient was reexamined prior to discharge. The patient will schedule a follow up in the clinic in 2-4 weeks. Description with the scheduled to have the RFA on the right side at C4-5, and C5-6 in the next 1-2 weeks
[2023-05-08] MEDS ORDERED: IV FLUID CONTINUATION 1,000 ML IV ONE (08:11)
--- NOTE | 2023-05-08 08:23 | FL ---
Intraoperative/procedural fluoroscopic services were provided for RF cervical. Total fluoroscopy time is 6.3 seconds with a total of 2 submitted images to PACS. Total DAP [id number] mGym2. Please see the operative note for further details.
[2023-05-08 08:48] VITALS: BP 116/66; PULSE 76
== END 2023-05-08 08:43 | disposition home or self-care (01) ==
LOC: ORPAIN 06:43
PROVIDERS: ATTEND Specialist
DX: M47.812 Spondylosis without myelopathy or radiculopathy, cervical region (principal); Z79.82 Long term (current) use of aspirin; Z88.5 Allergy status to narcotic agent
CPT/HCPCS: 99152; 64633; 64634; J2250; J1030; J3010; J2795

== ENCOUNTER → 2023-06-20 | Outpatient (CLI) | payer OTHER ==
--- NOTE | 2023-06-21 02:25 | MR ---
EXAMINATION TYPE: MR thoracic spine wo con DATE OF EXAM: 06/20/2023 COMPARISON: X-ray thoracic spine June 11, 2023 HISTORY: Upper thoracic pain. Intervertebral disc degeneration. TECHNIQUE: Multiplanar, multisequence imaging of thoracic spine is performed without contrast FINDINGS: There is slight levoconvex scoliotic curvature centered in the upper to mid thoracic spine. Spinal cord shows normal caliber and signal as it courses the thoracic spine. Mild anterior wedging involving T8 vertebra otherwise vertebral body heights are maintained. No large posterior disc herni ation seen on sagittal images. Bone marrow signal intensity is preserved. Review of the axial images shows small right paracentral disc protrusion at T9-T10 level effacing ant erolateral thecal sac and image 13 series 701. Remainder of the thorax and upper abdomen are unremar kable. IMPRESSION: Slight scoliotic curvature with small posterior disc herniation T9-T10 level.
== END | disposition home or self-care (01) ==
LOC: RADMRIMAIN 07:12
PROVIDERS: ATTEND Specialist
DX: M51.24 Other intervertebral disc displacement, thoracic region (principal); M41.84 Other forms of scoliosis, thoracic region; M51.34 Other intervertebral disc degeneration, thoracic region; M47.812 Spondylosis without myelopathy or radiculopathy, cervical region
CPT/HCPCS: 72146

== ENCOUNTER → 2023-06-25 | Outpatient (CLI) | payer OTHER ==
[2023-06-25 10:35] VITALS: BP 126/82; PULSE 77; RESP 16; TEMP 98.4
--- NOTE | 2023-06-25 13:19 | P.PAINPG ---
PQRS Measure Charge Sheet History and Exam Findings: All other causes of pain ruled out Comment: A 62 yr old female with a history of severe and chronic neck and mid back pain secondary to cervical DDD and spondylosis with facet arthropathy without myelopathy presents today for evaluation. Pain level is provoked at 6 /10 in intensity, constant, predominantly axial, localized in the thoracic spine, cramping in character without shooting pain. Pain is provoked by rotation or hyperextension. Pain is alleviated slightly with PT x 6 wks which ended in Jan 2023, massage therapy monthly q 6 wks which she is currently in, alternating heat & ice, use of a C collar, yoga, medications, laying supine, repositioning and rest. Oswestry axial score of 6. Interventional pain procedures completed include IKE C6-7 x3, BL RFA C4-C6 (Apr 2023) Patient is currently on Ibu, [place], Voltaren gel Patient denies any side effects of the medication(s), denies excessive drowsiness or sleepiness, denies suicidal ideation and reports that the current pain medication is helping to control the pain and improve activities of daily living. Patient denies any motor or sensory deficits. Patient denies any fever or night sweats, denies any change in the bowel movements or urination. Physical Examination: -Constitutional: Cooperative. Not in acute distress . - Neurologic: Cranial nerve II to XII intact. No focal neurological deficits. - Psychatric: Alert & oriented x 3. Matching mood & appropriate affect. Judgment and insight intact. - Musculoskeletal: Cervical spine: LUE pain w external rotation Muscle bulk/ tone/ strength in the bilateral upper extremities normal Vertebral body tenderness to palpation Spurling test positive Distraction test positive Facet loading test positive TTP Thoracic spine Muscle bulk / tone/ strength in the bilateral paraspinal muscles normal Vertebral body tender to palpation Lake test positive Facet loading test positive TTP Lumbar spine: Motor bulk/ tone/ strength lower extremities , thigh and legs : 5/5 Deep tendon reflexes : Normal Knee Jerk. Normal Ankle Jerk . Vertebral body tenderness to palpation over Lumbar Facet Loading Test positive Straight Leg Raise: positive at 30 degrees right side/ left side Gaenslen's Test positive Sacral spine : Severe tenderness over the Sacroiliac joint: right side / left side Range of motion: Flexion of the lumbar spine <60 degrees Range of motion: Extension of the lumbar spine <20 degrees Gaenslen's Test positive R / L Iban test: positive right side / left side Thigh Thrust Test positive R / L Sacral Thrust Test positive R/ L Imaging: MRI non contrast of the thoracic spine from 06/20/23 reviewed Assessment and plan: Chronic mid back pain secondary to thoracic DDD, spondylosis with facet arthropathy without myelopathy, Cervical DDD Recommendation of L subscapular nerve block #1. May need a series of injections for optimal pain relief. Risk, benefits of procedure discussed and patient verbalized understanding. Protocol for discontinuation/continuation of medication surrounding procedure discussed. All questions answered. I have spent less than 30 minutes on patient care today. Dr Cheng was available by phone for the evaluation of this patient. The time was used to review the medical records including relevant urine studies and Prescription history (MAPs), review of the available imaging, evaluation and examination of the patient, coordination of care with the medical staff and if applicable referring physicians, as well as creation of the medical record PQRS Narrative: Smoking Status Never smoker Hx Alcohol Use (MH) No Home Medications: Ambulatory Orders Bisoprolol-Hctz 5-6.25 mg [Ziac 5-6.25 MG] 1 tab PO DAILY 07/28/17 DULoxetine HCL [Cymbalta] 60 mg PO DAILY 07/28/17 Multivitamins, Thera [Multivitamin (formulary)] 1 tab PO DAILY 07/28/17 Sennosides-Docusate Sodium [Senokot-S] 2 tab PO HS 07/28/17 Aspirin [[place] Aspirin EC] 81 mg PO DAILY 03/30/21 Cholecalciferol [Vitamin D3 (125 Mcg = 5000 Iu)] 125 mcg PO DAILY 03/30/21 Ibuprofen [Motrin] 600 mg PO Q6HR PRN 03/30/21 Rosuvastatin [Crestor] 20 mg PO HS 03/30/21 Alendronate Sodium [Fosamax] 70 mg PO TU 07/14/22 Benazepril HCl 10 mg PO DAILY 07/14/22 Calcium Carbonate [Calcium] 1,200 mg PO DAILY 07/14/22 HYDROcodone/APAP 5-325MG [[place] 5-325] 1 tab PO Q4HR PRN 3 Days #15 tab 04/12/23 Controlled Substance Measures - Controlled Substance Measures Is patient prescribed a controlled substance at discharge?: No
== END ==
LOC: PNWHC3 09:26
PROVIDERS: ATTEND Specialist
DX: M51.34 Other intervertebral disc degeneration, thoracic region (principal); M47.814 Spondylosis without myelopathy or radiculopathy, thoracic region; G89.29 Other chronic pain; M50.30 Other cervical disc degeneration, unspecified cervical region; Z79.82 Long term (current) use of aspirin; Z88.5 Allergy status to narcotic agent
CPT/HCPCS: 99211

== ENCOUNTER 2023-07-12 06:25 | Day surgery (SDC) | payer OTHER ==
[2023-07-12 06:54] VITALS: RESP 18; TEMP 97.1
[2023-07-12] MEDS ORDERED: ROPIVACAINE 5MG/ML 20ML VIAL ONE (07:52)
[2023-07-12] MEDS ORDERED: methylPREDNISolone ACETATE 80 MG/ML 1 ML VIAL ONE (07:52)
--- NOTE | 2023-07-12 08:27 | P.PCN ---
Description of Procedure: Preoperative diagnosis= shoulder arthralgia, suprascapular neuralgia Postoperative diagnosis= same as preoperative diagnosis. Procedure= left suprascapular nerve block under ultrasound guidance.(Ultrasound imag steroid in medical record) Anesthesia= moderate sedation with Versed and fentanyl. Condition= stablle. Complications=none. Indication for the procedure= persistent shoulder pain. Conservative treatment. Description of the procedure= risk and benefits and alternative of the procedure , discussed with the patient and agreed with proceeding, patient taken to the procedure room placed in a sitting position, the shoulder area prepped with Betadine 3, then under sterile technique, using ultrasound guidance local infiltration of the skin and subcu interstitial with lidocaine 1% 3 mL using 25- gauge needle, then a 20-gauge PUJUNK needle advanced slowly under ultrasound, and advanced towards the suprascapular notch, the suprascapular nerve identified under ultrasound guidance, the needle tip advanced towards the suprascapular nerve, and after negative aspiration, bupivacaine 0.5% 7 mL mixed with 40 mg of Depo-Medrol, injected after negative aspiration and there was no paresthesia during the injection. Disposition. Patient tolerated the procedure well without any complications.discharged home in stable condition, patient will follow up in the pain clinic in 2-3 weeks. If no relief, may consider trigger point injections in future.
[2023-07-12 08:57] VITALS: BP 124/71; PULSE 62
== END 2023-07-12 08:20 | disposition home or self-care (01) ==
LOC: ORPAIN 06:25
PROVIDERS: ATTEND Pain Medicine Interventional Pain Medicine
DX: G58.8 Other specified mononeuropathies (principal); Z88.5 Allergy status to narcotic agent
CPT/HCPCS: 64418; J1040; J2795

== ENCOUNTER → 2023-07-26 | Outpatient (CLI) | payer OTHER ==
[2023-07-26 12:56] VITALS: BP 132/67; PULSE 86; RESP 15; TEMP 97.6
--- NOTE | 2023-07-26 13:33 | P.PAINPG ---
PQRS Measure Charge Sheet Comment: A 62 yr old female with a history of severe and chronic neck and mid back pain secondary to cervical DDD and spondylosis with facet arthropathy without myelopathy presents today for evaluation s/p L subscapular nerve block #1. Pt states she experienced 100 % pain relief x 2 wks s/p procedure. Pain level is provoked at 1 /10 in intensity, intermittent, predominantly axial, localized in the thoracic spine, cramping in character without shooting pain. Pain is provoked by rotation or hyperextension. Pain is alleviated slightly with PT x 6 wks which ended in Jan 2023, massage therapy monthly q 6 wks which she is currently in, alternating heat & ice, use of a C collar, yoga, medications, laying supine, repositioning and rest. Oswestry axial score of 1. Interventional pain procedures completed include IKE C6-7 x3, BL RFA C4-C6 (Apr 2023), L subscapular nerve block x1 Patient is currently on Ibu, [place], Voltaren gel Patient denies any side effects of the medication(s), denies excessive drowsiness or sleepiness, denies suicidal ideation and reports that the current pain medication is helping to control the pain and improve activities of daily living. Patient denies any motor or sensory deficits. Patient denies any fever or night sweats, denies any change in the bowel movements or urination. Physical Examination: -Constitutional: Cooperative. Not in acute distress . - Neurologic: Cranial nerve II to XII intact. No focal neurological deficits. - Psychatric: Alert & oriented x 3. Matching mood & appropriate affect. Judgment and insight intact. - Musculoskeletal: Cervical spine: LUE pain w external rotation Muscle bulk/ tone/ strength in the bilateral upper extremities normal Vertebral body tenderness to palpation Spurling test positive Distraction test positive Facet loading test positive TTP Thoracic spine Muscle bulk / tone/ strength in the bilateral paraspinal muscles normal Vertebral body tender to palpation Lake test positive Facet loading test positive TTP Lumbar spine: Motor bulk/ tone/ strength lower extremities , thigh and legs : 5/5 Deep tendon reflexes : Normal Knee Jerk. Normal Ankle Jerk . Vertebral body tenderness to palpation over Lumbar Facet Loading Test positive Straight Leg Raise: positive at 30 degrees right side/ left side Gaenslen's Test positive Sacral spine : Severe tenderness over the Sacroiliac joint: right side / left side Range of motion: Flexion of the lumbar spine <60 degrees Range of motion: Extension of the lumbar spine <20 degrees Gaenslen's Test positive R / L Iban test: positive right side / left side Thigh Thrust Test positive R / L Sacral Thrust Test positive R/ L Imaging: MRI non contrast of the thoracic spine from 06/20/23 reviewed Assessment and plan: Chronic mid back pain secondary to thoracic DDD, spondylosis with facet arthropathy without myelopathy, Cervical DDD Will manage residual pain and may RTC on an as needed basis. All questions answered. I have spent less than 30 minutes on patient care today. Dr Cheng was available by phone for the evaluation of this patient. The time was used to review the medical records including relevant urine studies and Prescription history (MAPs), review of the available imaging, evaluation and examination of the patient, coordination of care with the medical staff and if applicable referring physicians, as well as creation of the medical record PQRS Narrative: Smoking Status Never smoker Hx Alcohol Use (MH) No Home Medications: Ambulatory Orders Bisoprolol-Hctz 5-6.25 mg [Ziac 5-6.25 MG] 1 tab PO DAILY 07/28/17 DULoxetine HCL [Cymbalta] 60 mg PO DAILY 07/28/17 Multivitamins, Thera [Multivitamin (formulary)] 1 tab PO DAILY 07/28/17 Sennosides-Docusate Sodium [Senokot-S] 2 tab PO HS 07/28/17 Aspirin [[place] Aspirin EC] 81 mg PO DAILY 03/30/21 Cholecalciferol [Vitamin D3 (125 Mcg = 5000 Iu)] 125 mcg PO DAILY 03/30/21 Ibuprofen [Motrin] 600 mg PO Q6HR PRN 03/30/21 Rosuvastatin [Crestor] 20 mg PO HS 03/30/21 Alendronate Sodium [Fosamax] 70 mg PO TU 07/14/22 Benazepril HCl 10 mg PO DAILY 07/14/22 Calcium Carbonate [Calcium] 1,200 mg PO DAILY 07/14/22 diazePAM [Valium] 5 mg PO DAILY PRN 1 Days #2 tab 06/25/23 Controlled Substance Measures - Controlled Substance Measures Is patient prescribed a controlled substance at discharge?: No
== END ==
LOC: PNWHC3 10:37
PROVIDERS: ATTEND Specialist
DX: M47.812 Spondylosis without myelopathy or radiculopathy, cervical region (principal); M51.34 Other intervertebral disc degeneration, thoracic region; M47.814 Spondylosis without myelopathy or radiculopathy, thoracic region; M50.30 Other cervical disc degeneration, unspecified cervical region; Z88.5 Allergy status to narcotic agent
CPT/HCPCS: 99211

== ENCOUNTER → 2023-10-17 | Outpatient (CLI) | payer OTHER ==
[2023-10-17 13:35] VITALS: BP 120/78; PULSE 64; RESP 16
--- NOTE | 2023-10-17 14:04 | P.PAINPG ---
PQRS Measure Charge Sheet Comment: A 62 yr old female with a history of severe and chronic neck and mid back pain secondary to cervical DDD and spondylosis with facet arthropathy without myelopathy presents today for evaluation. Pain level is provoked at 6 /10 in intensity, intermittent, predominantly axial, localized in the thoracic spine, cramping in character w occasional shooting pain to BL scapula. Pain is provoked by rotation or hyperextension. Pain is alleviated slightly with PT x 6 wks which ended in Jan 2023, massage therapy monthly q 6 wks which she is currently in, alternating heat & ice, use of a C collar, yoga, medications, laying supine, repositioning and rest. Oswestry axial score of 16. Interventional pain procedures completed include IKE C6-7 x3, BL RFA C4-C6 (05/01-), L subscapular nerve block x1 Patient is currently on Ibu, [place], Voltaren gel Patient denies any side effects of the medication(s), denies excessive drowsiness or sleepiness, denies suicidal ideation and reports that the current pain medication is helping to control the pain and improve activities of daily living. Patient denies any motor or sensory deficits. Patient denies any fever or night sweats, denies any change in the bowel movements or urination. Physical Examination: -Constitutional: Cooperative. Not in acute distress . - Neurologic: Cranial nerve II to XII intact. No focal neurological deficits. - Psychatric: Alert & oriented x 3. Matching mood & appropriate affect. Judgment and insight intact. - Musculoskeletal: Cervical spine: BUE pain w external rotation Muscle bulk/ tone/ strength in the bilateral upper extremities normal Vertebral body tenderness to palpation over C6 Spurling test positive R> L C6-C7 Distraction test positive Facet loading test positive TTP Thoracic spine Muscle bulk / tone/ strength in the bilateral paraspinal muscles normal Vertebral body tender to palpation [place] test positive Facet loading test positive TTP Lumbar spine: Motor bulk/ tone/ strength lower extremities , thigh and legs : 5/5 Deep tendon reflexes : Normal Knee Jerk. Normal Ankle Jerk . Vertebral body tenderness to palpation over Lumbar Facet Loading Test positive Straight Leg Raise: positive at 30 degrees right side/ left side Gaenslen's Test positive Sacral spine : Severe tenderness over the Sacroiliac joint: right side / left side Range of motion: Flexion of the lumbar spine <60 degrees Range of motion: Extension of the lumbar spine <20 degrees Gaenslen's Test positive R / L Iban test: positive right side / left side Thigh Thrust Test positive R / L Sacral Thrust Test positive R/ L Imaging: MRI non contrast of the thoracic spine from 06/20/23 reviewed Assessment and plan: Chronic neck and mid back pain secondary to DDD, spondylosis with facet arthropathy without myelopathy, Cervical DDD Recommendation of IKE C6-C7 #3. May need a series of injections for optimal pain relief. Risks, benefits of procedure discussed and pt verbalized understanding. Protocol for discontinuation/ continuation of medications joe procedure discussed. All questions answered. I have spent less than 30 minutes on patient care today. Dr Cheng was available by phone for the evaluation of this patient. The time was used to review the medical records including relevant urine studies and Prescription history (MAPs), review of the available imaging, evaluation and examination of the patient, coordination of care with the medical staff and if applicable referring physicians, as well as creation of the medical record PQRS Narrative: Smoking Status Never smoker Hx Alcohol Use (MH) No Home Medications: Ambulatory Orders Bisoprolol-Hctz 5-6.25 mg [Ziac 5-6.25 MG] 1 tab PO DAILY 07/28/17 DULoxetine HCL [Cymbalta] 60 mg PO DAILY 07/28/17 Multivitamins, Thera [Multivitamin (formulary)] 1 tab PO DAILY 07/28/17 Sennosides-Docusate Sodium [Senokot-S] 2 tab PO HS 07/28/17 Aspirin [[place] Aspirin EC] 81 mg PO DAILY 03/30/21 Cholecalciferol [Vitamin D3 (125 Mcg = 5000 Iu)] 125 mcg PO DAILY 03/30/21 Ibuprofen [Motrin] 600 mg PO Q6HR PRN 03/30/21 Rosuvastatin [Crestor] 20 mg PO HS 03/30/21 Alendronate Sodium [Fosamax] 70 mg PO TU 07/14/22 Benazepril HCl 10 mg PO DAILY 07/14/22 Calcium Carbonate [Calcium] 1,200 mg PO DAILY 07/14/22 diazePAM [Valium] 5 mg PO DAILY PRN 1 Days #2 tab 06/25/23 Controlled Substance Measures - Controlled Substance Measures Is patient prescribed a controlled substance at discharge?: No
== END ==
LOC: PNWHC3 12:48
PROVIDERS: ATTEND Specialist
DX: M47.812 Spondylosis without myelopathy or radiculopathy, cervical region (principal); M50.323 Other cervical disc degeneration at C6-C7 level; M54.50 Low back pain, unspecified; Z88.5 Allergy status to narcotic agent
CPT/HCPCS: 99211

== ENCOUNTER 2023-11-06 07:50 | Day surgery (SDC) | payer OTHER ==
[2023-11-06 08:32] VITALS: TEMP 97.5
[2023-11-06] MEDS ORDERED: DEXAMETHASONE SOD PHOSPHATE 10 MG/ML 1 ML VIAL ONE (09:20)
[2023-11-06] MEDS ORDERED: ROPIVACAINE 5MG/ML 20ML VIAL ONE (09:20)
[2023-11-06] MEDS ORDERED: IOPAMIDOL M300 15ML VIAL ONE (09:20)
--- NOTE | 2023-11-06 09:49 | P.PCN ---
Description of Procedure: PROCEDURE 1. Injection of radio contrast material into cervical epidural space, cervical epidurogram, interpretation of cervical epidurogram, Cervical epidural steroid injection under fluoroscopic guidance, C5-6 (fluoroscopy images available in the radiology department ) 2. Cervical epidurogram. PREOPERATIVE DIAGNOSIS: 1- Cervical Degenerative Disc Diseases 2- Cervical radiculopathy., 3-cervical spondylosis with cervical Facet arthropathy without myelopathy.4-cervical spinal stenosis POSTOPERATIVE DIAGNOSIS: : 1- Cervical Degenerative Disc Diseases , 2- Cervical radiculopathy. 3-,cervical spondylosis with cervical Facet arthropathy without myelopathy. 4-cervical spinal stenosis ANESTHESIA: Local anesthetics infiltration. In the OR continuous pulse ox, EKG, blood pressure and verbal communication was maintained. EBL : None PROCEDURE INDICATION: The patient with neck pain and radiculitis unresponsive to conservative treatment consents for procedure. Discussed the procedure, alternatives and possible complications which may include increased pain, infection, bleeding, nerve damage, paralysis all of which could be permanent. Patient understands and all questions were answered. PROCEDURE DESCRIPTION : After getting consent patient was taken to the OR , positioned in prone position and time out was completed. A pillow was placed under the patients chest to increase the cervical interlaminar space. The cervical area was prepped and draped in the usual sterile fashion. Using anterior-posterior fluoroscopy, interlaminar space was identified and the skin over this site was marked and then infiltrated with 1% lidocaine subcutaneously. Subsequently, a 20-gauge 3-1/2-inch Tuohy epidural needle was inserted and advanced toward the epidural space with the loss of resistance technique using a syringe filled with preservative-free normal saline and guided by AP and lateral fluoroscopy. Negative CSF, negative blood, negative paresthesia. The correct needle position in the epidural space was verified with the injection of 2 mL of the water soluble contrast dye [id number]-200 and observing an excellent epidurogram with the epidural spread of the dye, after repeat negative aspiration 3 mL solution was injected which consists of 1 mL of preservative-free normal saline mixed with 2 mL of 20 mg dexamethasone and a washout of epidurogram was seen. Needle was withdrawn intact, skin was cleansed, and bandages were applied. Disposition: Patient tolerated the procedure well. No complication. Patient was placed in supine position and transferred to the recovery room area in stable condition and there was no evidence of upper or lower extremity motor or sensory deficit after the procedure patient was discharged from recovery room after discharge criteria met and home discharge instructions was given by the staff and patient will follow with the pain clinic in 2-4 weeks
--- NOTE | 2023-11-06 09:56 | FL ---
EXAMINATION TYPE: FL guided pain mgmt statistic Intraoperative/procedural fluoroscopic services were provided. Total fluoroscopy time is 24.3 seconds with a total of 2 submitted images to PACS. Please s ee the operative/procedural note for further details. DAP: [id number] mGym2
[2023-11-06 10:03] VITALS: BP 140/74; PULSE 60; RESP 18
== END 2023-11-06 10:10 | disposition home or self-care (01) ==
LOC: ORPAIN 07:50
PROVIDERS: ATTEND Pain Medicine Interventional Pain Medicine
DX: M50.122 Cervical disc disorder at C5-C6 level with radiculopathy (principal); M48.02 Spinal stenosis, cervical region; M47.22 Other spondylosis with radiculopathy, cervical region; Z79.82 Long term (current) use of aspirin; Z79.1 Long term (current) use of non-steroidal anti-inflammatories (NSAID); Z88.5 Allergy status to narcotic agent
CPT/HCPCS: 62321; J1100; Q9967; J2795

== ENCOUNTER → 2023-12-03 | Outpatient (CLI) | payer OTHER ==
--- NOTE | 2023-12-03 14:27 | MR ---
EXAMINATION TYPE: MR shoulder RT wo con DATE OF EXAM: 12/03/2023 COMPARISON: None HISTORY: Decreased range of motion for 3 years and shoulder pain TECHNIQUE: Multiplanar, multisequence imaging of the right shoulder is performed without contrast. FINDINGS: There is mild degeneration of the AC joint. The glenohumeral joint is intact. No glenohumeral joint e ffusion. There is no bone contusion or fracture. There is no subacromial or subdeltoid bursitis. There is marked thickening of the inferior glenohumeral ligament suggestive of capsulitis. There is marked atrophy and partial tear with a few intact fibers subscapularis tendon. The supraspin atus tendons are intact Biceps tendon is normal in signal intensity and position within the bicipital groove and the biceps a nchor is intact. The cartilaginous labrum is grossly intact. Impression 1. Partial tear and atrophy of the subscapularis tendon. 2. Marked thickening of the inferior glenohumeral ligament suggestive of adhesive capsulitis 3. Minimal degeneration of the AC joint without shoulder impingement. 4. no evidence of bursitis.
== END | disposition home or self-care (01) ==
LOC: RADMRIMAIN 10:25
PROVIDERS: ATTEND Orthopaedic Surgery
DX: M75.51 Bursitis of right shoulder

== ENCOUNTER → 2023-12-03 | Outpatient (CLI) | payer OTHER ==
[2023-12-03 12:50] VITALS: BP 120/73; PULSE 63; RESP 16; TEMP 96.5
--- NOTE | 2023-12-03 14:25 | P.PAINPG ---
PQRS Measure Charge Sheet Comment: A 63 yr old female with a history of severe and chronic neck and mid back pain secondary to cervical DDD and spondylosis with facet arthropathy without myelopathy presents today for evaluation s/p IKE C5-C6. Pt states she experienced 90% pain relief x 4 wks s/p procedure. Pain level is provoked at 1 /10 in intensity, intermittent, predominantly axial, localized in the cervicothoracic spine, cramping in character w occasional shooting pain to BL scapula. Pain is provoked by rotation or hyperextension. Pain is alleviated slightly with PT x 6 wks which ended in Jan 2023, massage therapy monthly q 6 wks which she is currently in, alternating heat & ice, use of a C collar, yoga, medications, laying supine, repositioning and rest. Interventional pain procedures completed include IKE C6-7 x3, BL RFA C4-C6 (05/01-), L subscapular nerve block x1, IKE C5-C6 x1 (Oct 2023) Patient is currently on Ibu, [place], Voltaren gel Patient denies any side effects of the medication(s), denies excessive drowsiness or sleepiness, denies suicidal ideation and reports that the current pain medication is helping to control the pain and improve activities of daily living. Patient denies any motor or sensory deficits. Patient denies any fever or night sweats, denies any change in the bowel movements or urination. Physical Examination: -Constitutional: Cooperative. Not in acute distress . - Neurologic: Cranial nerve II to XII intact. No focal neurological deficits. - Psychatric: Alert & oriented x 3. Matching mood & appropriate affect. Judgment and insight intact. - Musculoskeletal: Cervical spine: BUE pain w external rotation Muscle bulk/ tone/ strength in the bilateral upper extremities normal Vertebral body tenderness to palpation over C6 Spurling test positive R> L C6-C7 Distraction test positive Facet loading test positive TTP Thoracic spine Muscle bulk / tone/ strength in the bilateral paraspinal muscles normal Vertebral body tender to palpation [place] test positive Facet loading test positive TTP Lumbar spine: Motor bulk/ tone/ strength lower extremities , thigh and legs : 5/5 Deep tendon reflexes : Normal Knee Jerk. Normal Ankle Jerk . Vertebral body tenderness to palpation over Lumbar Facet Loading Test positive Straight Leg Raise: positive at 30 degrees right side/ left side Gaenslen's Test positive Sacral spine : Severe tenderness over the Sacroiliac joint: right side / left side Range of motion: Flexion of the lumbar spine <60 degrees Range of motion: Extension of the lumbar spine <20 degrees Gaenslen's Test positive R / L Iban test: positive right side / left side Thigh Thrust Test positive R / L Sacral Thrust Test positive R/ L Imaging: MRI non contrast of the thoracic spine from 06/20/23 reviewed Assessment and plan: Chronic neck and mid back pain secondary to DDD, spondylosis with facet arthropathy without myelopathy, Cervical DDD Will manage residual pain and may RTC on an as needed basis. All questions answered. I have spent less than 30 minutes on patient care today. Dr Cheng was available by phone for the evaluation of this patient. The time was used to review the medical records including relevant urine studies and Prescription history (MAPs), review of the available imaging, evaluation and examination of the patient, coordination of care with the medical staff and if applicable referring physicians, as well as creation of the medical record PQRS Narrative: Smoking Status Never smoker Hx Alcohol Use (MH) No Home Medications: Ambulatory Orders Bisoprolol-Hctz 5-6.25 mg [Ziac 5-6.25 MG] 1 tab PO DAILY 07/28/17 DULoxetine HCL [Cymbalta] 60 mg PO DAILY 07/28/17 Multivitamins, Thera [Multivitamin (formulary)] 1 tab PO DAILY 07/28/17 Sennosides-Docusate Sodium [Senokot-S] 2 tab PO HS 07/28/17 Aspirin [[place] Aspirin EC] 81 mg PO DAILY 03/30/21 Cholecalciferol [Vitamin D3 (125 Mcg = 5000 Iu)] 125 mcg PO DAILY 03/30/21 Ibuprofen [Motrin] 600 mg PO Q6HR PRN 03/30/21 Rosuvastatin [Crestor] 20 mg PO HS 03/30/21 Alendronate Sodium [Fosamax] 70 mg PO TU 07/14/22 Benazepril HCl 10 mg PO DAILY 07/14/22 Calcium Carbonate [Calcium] 1,200 mg PO DAILY 07/14/22 diazePAM [Valium] 5 mg PO DAILY PRN 1 Days #2 tab 10/17/23 Controlled Substance Measures - Controlled Substance Measures Is patient prescribed a controlled substance at discharge?: No
== END ==
LOC: PNWHC3 10:05
PROVIDERS: ATTEND Specialist
DX: M50.30 Other cervical disc degeneration, unspecified cervical region (principal); M47.812 Spondylosis without myelopathy or radiculopathy, cervical region; Z88.5 Allergy status to narcotic agent
CPT/HCPCS: 99211

== ENCOUNTER → 2024-03-28 | Outpatient (CLI) | payer OTHER ==
--- NOTE | 2024-03-28 14:32 | BD ---
EXAMINATION TYPE: Axial Bone Density DATE OF EXAM: 03/28/2024 CLINICAL HISTORY: 63 years old Female. ICD-10 CODE: N951 POST FAUSTINO, M858 KNOWN OSTEOPENIA , Addition al History: Height: 65 Weight: 110 FRAX RISK QUESTIONS: Alcohol (3 or more units per day): no Family History (Parent hip fracture): yes Glucocorticoids (More than 3mos): no (Ex: prednisone, prednisolone, methylprednisolone, dexamethasone, and hydrocortisone). History of Fracture in Adulthood: yes Secondary Osteoporosis: 1. Type 1 Diabetes: no 2. Hyperthyroidism: no 3. Menopause before 45: no 4. Malnutrition: no 5. Chronic liver disease: no Rheumatoid Arthritis: no Current Tobacco Use: no RISK FACTORS HISTORY OF: History of Wrist Fracture: left When: as a child Surgery to Spine/Hip(right/left)/Wrist (right/left): no MEDICATIONS: Osteoporosis Medications: alendronate how Lon years EXAM MEASUREMENTS: Bone mineral densitometry was performed using the [employer] System. Bone mineral density as measured about the Lumbar spine is: ----- L1-L4(G/cm2): 1.129 T Score Values are as follows: ----- L1: -0.6 ----- L2: -0.5 ----- L3: -0.2 ----- L4: -0.5 ----- L1-L4: -0.4 Z Score Values are as follows: ----- L1: 1.3 ----- L2: 1.5 ----- L3: 1.8 ----- L4: 1.4 ----- L1-L4: 1.5 Bone mineral density has: increased 6.8 % since study of: 02.06.2022 Bone mineral density about the R hip (g/cm2): 0.790 Bone mineral density about the L hip (g/cm2): 0.785 T Score values are as follows: -----R Neck: -1.3 -----L Neck: -1.1 -----R Total: -1.7 -----L Total: -1.8 Z Score values are as follows: -----R Neck: 0.4 -----L Neck: 0.6 -----R Total: -0.3 -----L Total: -0.3 Bone mineral density has: increased 2.1 % since study of: 02.06.2022 FRAX%s: The graph provided illustrates a 21.9% chance for a major osteoporotic fx and a 1.2% chance f or the hips probability for fx in 10 years time. IMPRESSION: Osteopenia (T Score between -2.5 and -1). There is slightly increased risk of fracture and the patient may be considered for treatment. Re-Screen 2-5 years. NOTE: T-SCORE=SD OF THE YOUNG ADULT MEAN. [facility], , 03/28/2024 2:30 PM
--- NOTE | 2024-03-31 11:19 | MM ---
Reason for Exam: Screening (asymptomatic). Last mammogram was performed 1 year(s) and 1 month(s) ago. Patient History: Menarche at age 11. First Full-Term at age 28. Hysterectomy at age 51. Postmenopausal. Patient has history of breast feeding. Patient used Hormonal Contraceptives for 15 years. Risk Values: Ebonie 5 year model risk: 1.9%. NCI Lifetime model risk: 8.1%. Prior Study Comparison: 01/13/2021 Bilateral Screening Mammogram, [facility]. 02/06/2022 Bilateral MG 3D screening mammo w/cad, [facility]. 02/12/2023 Bilateral MG 3D screening mammo w/cad, [facility]. Tissue Density: The breasts are heterogeneously dense, which may obscure small masses. Findings: Analyzed By CAD. There is no suspicious group of microcalcifications or new suspicious mass in either breast. Chronic nodularity right breast stable. Overall Assessment: Benign, BI-RAD 2 Management: Screening Mammogram of both breasts in 1 year. . Patient should continue monthly self-breast exams. A clinical breast exam by your physician is recommended on an annual basis. This exam should not preclude additional follow-up of suspicious palpable abnormalities. Note on Ebonie scores and lifetime risk: 1. A Ebonie score greater than 3% is considered moderate risk. If this is the case, consider specialist referral to assess eligibility for a risk reducing agent. 2. If overall lifetime risk for the development of breast cancer is 20% or higher, the patient may qualify for future screening with alternating mammogram and breast MRI. [facility], , 03/31/2024 11:15 AM. Electronically signed and approved by: Ruben Chaudhari M.D. Radiologis
== END | disposition home or self-care (01) ==
LOC: RADMAMWWP 13:24
PROVIDERS: ATTEND Family Medicine
DX: Z12.31 Encounter for screening mammogram for malignant neoplasm of breast (principal); R92.333 Mammographic heterogeneous density, bilateral breasts; M85.89 Other specified disorders of bone density and structure, multiple sites; Z78.0 Asymptomatic menopausal state; Z92.0 Personal history of contraception
CPT/HCPCS: 77063; 77067; 77080

== ENCOUNTER → 2024-08-13 | Outpatient (CLI) | payer OTHER ==
[2024-08-13 09:25] VITALS: BP 135/84; PULSE 65; RESP 16; TEMP 97.3
--- NOTE | 2024-08-13 15:53 | P.PAINPG ---
PQRS Measure Charge Sheet Comment: A 63 yr old female with a history of severe and chronic neck and mid back pain secondary to levoconvex scoliosis, C4-T1 radiculopathy spondylosis with facet arthropathy without myelopathy presents today for evaluation. Pt undewent a BL RFA C4-C5/ C5-C6 in Apr 2023 and experienced 100 % pain relief x 6-7 mo s/p procedure. Pain level is provoked at 5-6 /10 in intensity, constant, predominantly axial, localized in the cervical spine, predominantly axial, sharp in character without shooting pain. Pain is provoked by rotation or hyperextension. Pain is alleviated slightly with PT x 6 wks which ended in Jan 2023, massage therapy monthly q 6 wks which she is currently in, alternating heat & ice, use of a C collar, yoga, medications, laying supine, repositioning and rest. Interventional pain procedures completed include IKE C6-7 x3, BL RFA C4-C6 (05/01-), L subscapular nerve block x1, IKE C5-C6 x1 (Oct 2023) Patient is currently on Ibu, [place], Voltaren gel Patient denies any side effects of the medication(s), denies excessive drowsiness or sleepiness, denies suicidal ideation and reports that the current pain medication is helping to control the pain and improve activities of daily living. Patient denies any motor or sensory deficits. Patient denies any fever or night sweats, denies any change in the bowel movements or urination. Physical Examination: -Constitutional: Cooperative. Not in acute distress . - Neurologic: Cranial nerve II to XII intact. No focal neurological deficits. - Psychatric: Alert & oriented x 3. Matching mood & appropriate affect. Judgment and insight intact. - Musculoskeletal: Cervical spine: BUE pain w external rotation Muscle bulk/ tone/ strength in the bilateral upper extremities normal Vertebral body tenderness to palpation over C6 Spurling test positive R> L C6-C7 Distraction test positive Facet loading test positive BL C4-C5/ C5-C6 Thoracic spine Muscle bulk / tone/ strength in the bilateral paraspinal muscles normal Vertebral body tender to palpation [place] test positive Facet loading test positive TTP Lumbar spine: Motor bulk/ tone/ strength lower extremities , thigh and legs : 5/5 Deep tendon reflexes : Normal Knee Jerk. Normal Ankle Jerk . Vertebral body tenderness to palpation over Lumbar Facet Loading Test positive Straight Leg Raise: positive at 30 degrees right side/ left side Gaenslen's Test positive Sacral spine : Severe tenderness over the Sacroiliac joint: right side / left side Range of motion: Flexion of the lumbar spine <60 degrees Range of motion: Extension of the lumbar spine <20 degrees Gaenslen's Test positive R / L Iban test: positive right side / left side Thigh Thrust Test positive R / L Sacral Thrust Test positive R/ L Imaging: MRI non contrast of the thoracic spine from 06/20/23 reviewed MRI non contrast of the cervical spine from 06/20/2022 reviewed Assessment and plan: Chronic neck and mid back pain secondary to levoconvex scoliosis, C4-T1 radiculopathy, spondylosis with facet arthropathy without myelopathy, Cervical radiculopathy Recommendation of BL RFA C4-C5/C5-C6. Risk, benefits of procedure discus sed and patient verbalized understanding. Protocol for discontinuation/continuation of medication surrounding procedure discussed. Minimal anesthesia including Fentanyl and Versed if clinically indicated. All questions answered. I have spent less than 30 minutes on patient care today. Dr Cheng was available by phone for the evaluation of this patient. The time was used to review the medical records including relevant urine studies and Prescription history (MAPs), review of the available imaging, evaluation and examination of the patient, coordination of care with the medical staff and if applicable referring physicians, as well as creation of the medical record PQRS Narrative: Smoking Status Never smoker Hx Alcohol Use (MH) No Home Medications: Ambulatory Orders Bisoprolol-Hctz 5-6.25 mg [Ziac 5-6.25 MG] 1 tab PO DAILY 07/28/17 DULoxetine HCL [Cymbalta] 60 mg PO DAILY 07/28/17 Multivitamins, Thera [Multivitamin (formulary)] 1 tab PO DAILY 07/28/17 Sennosides-Docusate Sodium [Senokot-S] 2 tab PO HS 07/28/17 Aspirin [[place] Aspirin EC] 81 mg PO DAILY 03/30/21 Cholecalciferol [Vitamin D3 (125 Mcg = 5000 Iu)] 125 mcg PO DAILY 03/30/21 Ibuprofen [Motrin] 600 mg PO Q6HR PRN 03/30/21 Rosuvastatin [Crestor] 20 mg PO HS 03/30/21 Alendronate Sodium [Fosamax] 70 mg PO TU 07/14/22 Benazepril HCl 10 mg PO DAILY 07/14/22 Calcium Carbonate [Calcium] 1,200 mg PO DAILY 07/14/22 diazePAM [Valium] 5 mg PO DAILY PRN 1 Days #2 tab 10/17/23 Controlled Substance Measures - Controlled Substance Measures Is patient prescribed a controlled substance at discharge?: No
== END ==
LOC: PNWHC3 09:08
PROVIDERS: ATTEND Specialist
DX: M41.83 Other forms of scoliosis, cervicothoracic region (principal); M47.23 Other spondylosis with radiculopathy, cervicothoracic region; Z88.5 Allergy status to narcotic agent
CPT/HCPCS: 99211

== ENCOUNTER 2024-09-26 06:10 | Day surgery (SDC) | payer OTHER ==
[2024-09-24 14:05] VITALS: BMI 18.4
[2024-09-26] MEDS: IV FLUID CONTINUATION 1,000 ML IV ONE ×2 (06:29→07:35)
[2024-09-26] MEDS: LACTATED RINGERS 1,000 ML IV SCH (06:47)
[2024-09-26 06:51] VITALS: TEMP 97.7
[2024-09-26] MEDS ORDERED: fentaNYL (PF) 50 MCG/ML 2 ML AMP ONE (07:09)
[2024-09-26] MEDS ORDERED: ROPIVACAINE 5 MG/ML 30 ML VIAL ONE (07:09)
[2024-09-26] MEDS ORDERED: methylPREDNISolone ACETATE 40 MG/ML 1 ML VIAL ONE (07:09)
[2024-09-26] MEDS ORDERED: MIDAZOLAM 2 MG/2 ML VIAL ONE (07:09)
--- NOTE | 2024-09-26 07:29 | P.PCN ---
Date of Procedure: 09/26/24 Procedure(s) Performed: PREOPERATIVE DIAGNOSIS: Cervical spondylosis with Facet Arthropathy without myelopathy. POSTOPERATIVE DIAGNOSIS: Cervical spondylosis with Facet Arthropathy without myelopathy. PROCEDURES: Radiofrequency thermocoagulation,Left C4, C5, C6 medial branch with Fluroscopy [place](fluoroscopy was available in Radiology department ) (to denervate the facet joint at Left C4- 5 , C5- 6 ) ANESTHESIA: moderate sedation with fentanyl 50 micrograms and Versed 2 mg ( sedations started at 07:09 , ended at 07:24 ) EBL: Minimal PROCEDURE INDICATION: The patient with neck pain secondary to cervical arthropathy who had more than 80% relief of her pain with previous diagnostic cervical medial branch block. PROCEDURE DESCRIPTION / TECHNIQUE: The patient was seen and identified in the preoperative area. Risks, benefits, complications, and alternatives were discussed with the patient, the patient agreed to proceed with the procedure and signed the consent. IV was started. Vital signs remained stable throughout the procedure. Patient was taken to the OR and time out was completed. The patient was placed in the prone position on the procedure table. A pillow was placed under the patients chest to increase the cervical interlaminar space. The cervical area was prepped and draped in the usual sterile fashion. Critical pause was taken. Vital signs were closely monitored during the procedure. Conscious sedation was used during the procedure to decrease patients anxiety. Using cross-table lateral fluoroscopy, the centroid of the trapezoid of Left C4, C5, and C6 were identified, marked, and localized with 1% lidocaine. Subseq uently, a 20 [id number] radiofrequency cannula with a 10-mm active tip was advanced guided by fluoroscopy to the centroid of the trapezoid of Left C4, C5, and C6 . Needle tip position was confirmed at the centroid of the trapezoids of Left C4, C5, and C6 with anteroposterior fluoroscopy. Each site then underwent sensory testing at 50 Hz and 0 to 1 volt and motor testing at 2 Hz and 0 to 3 volt with local stimulation, but no radicular symptoms down the arm. Thereafter each sites underwent radiofrequency thermocoagulation at 80 degrees celsius for 90 seconds after injecting 0.5 ml of PF Ropivacaine 0.5 %. After thermocoagulation, 1 ml of the block solution containing Depo-Medrol 40 mg and 3 mL of preservative-free normal saline was injected at the Left C4, C5, and C6 levels after negative aspiration of CSF and blood and with no paresthesias. Cannulas were removed intact . Skin was cleansed and bandages were applied. COMPLICATIONS: No acute complications. DISPOSITION / PLANS: The patient was placed in a supine position and transferred to the recovery area in a stable condition for observation and was discharged from the recovery room after meeting discharge criteria. Home disch arge instructions given to the patient by the staff. The patient was reexamined prior to discharge. The patient will schedule a follow up in the clinic in 2-4 weeks.
[2024-09-26 07:41] VITALS: RESP 14
[2024-09-26 07:51] VITALS: BP 127/75; PULSE 76
--- NOTE | 2024-09-26 08:02 | FL ---
EXAMINATION TYPE: FL guided pain mgmt statistic DATE OF EXAM: 09/26/2024 FLUOROSCOPY 11 sec FL .[id number] DAP dose Cervical facet radiofrequency ablation 2 images are provided [facility], , 09/26/2024 8:00 AM
== END 2024-09-26 08:05 | disposition home or self-care (01) ==
LOC: ORPAIN 06:10
PROVIDERS: ATTEND Specialist
DX: M47.812 Spondylosis without myelopathy or radiculopathy, cervical region (principal); Z88.5 Allergy status to narcotic agent; Z79.82 Long term (current) use of aspirin
CPT/HCPCS: 64633; 64634; J2250; J3010; J2795; J1010; 99152

== ENCOUNTER → 2024-10-16 | Outpatient (CLI) | payer OTHER ==
[2024-10-16 09:32] VITALS: BP 115/78; PULSE 54; RESP 19; TEMP 97.9
--- NOTE | 2024-10-16 12:31 | P.PAINPG ---
PQRS Measure Charge Sheet Comment: A 63 yr old female with a history of severe and chronic neck and mid back pain secondary to levoconvex scoliosis, C4-T1 radiculopathy spondylosis with facet arthropathy without myelopathy presents today for evaluation s/p BL RFA C4-C5/C5-C6. Pt states she experienced 100 % pain relief s/p procedure. Pain le tameka is provoked at 1 /10 in intensity, constant, predominantly axial, localized in the cervical spine, predominantly axial, sharp in character without shooting pain. Pain is provoked by rotation or hyperextension. Pain is alleviated slightly with PT x 6 wks which ended in Jan 2023, massage therapy monthly q 6 wks which she is currently in, alternating heat & ice, use of a C collar, yoga, medications, laying supine, repositioning and rest. Interventional pain procedures completed include IKE C6-7 x3, BL RFA C4-C6 x2 (05/01-06/30, 08/31-10/01), L subscapular nerve block x1, IKE C5-C6 x1 (Oct 2023) Patient is currently on Ibu, [place], Voltaren gel Patient denies any side effects of the medication(s), denies excessive drowsiness or sleepiness, denies suicidal ideation and reports that the current pain medication is helping to control the pain and improve activities of daily living. Patient denies any motor or sensory deficits. Patient denies any fever or night sweats, denies any change in the bowel movements or urination. Physical Examination: -Constitutional: Cooperative. Not in acute distress . - Neurologic: Cranial nerve II to XII intact. No focal neurological deficits. - Psychatric: Alert & oriented x 3. Matching mood & appropriate affect. Judgment and insight intact. - Musculoskeletal: Cervical spine: BUE pain w external rotation Muscle bulk/ tone/ strength in the bilateral upper extremities normal Vertebral body tenderness to palpation over C6 Spurling test positive R> L C6-C7 Distraction test positive Facet loading test positive BL C4-C5/ C5-C6 Thoracic spine Muscle bulk / tone/ strength in the bilateral paraspinal muscles normal Vertebral body tender to palpation [place] test positive Facet loading test positive TTP Lumbar spine: Motor bulk/ tone/ strength lower extremities , thigh and legs : 5/5 Deep tendon reflexes : Normal Knee Jerk. Normal Ankle Jerk . Vertebral body tenderness to palpation over Lumbar Facet Loading Test positive Straight Leg Raise: positive at 30 degrees right side/ left side Gaenslen's Test positive Sacral spine : Severe tenderness over the Sacroiliac joint: right side / left side Range of motion: Flexion of the lumbar spine <60 degrees Range of motion: Extension of the lumbar spine <20 degrees Gaenslen's Test positive R / L Iban test: positive right side / left side Thigh Thrust Test positive R / L Sacral Thrust Test positive R/ L Imaging: MRI non contrast of the thoracic spine from 06/20/23 reviewed MRI non contrast of the cervical spine from 06/20/2022 reviewed Assessment and plan: Chronic neck and mid back pain secondary to levoconvex scoliosis, C4-T1 radiculopathy, spondylosis with facet arthropathy without myelopathy, Cervical radiculopathy Will manage residual pain and may RTC on an as needed basis. All questions answered. I have spent less than 30 minutes on patient care today. Dr Cheng was available by phone for the evaluation of this patient. The time was used to review the medical records including relevant urine studies and Prescription history (MAPs), review of the available imaging, evaluation and examination of the patient, coordination of care with the medical staff and if applicable referring physicians, as well as creation of the medical record PQRS Narrative: Smoking Status Never smoker Hx Alcohol Use (MH) Yes: SELDOM Home Medications: Ambulatory Orders Bisoprolol-Hctz 5-6.25 mg [Ziac 5-6.25 MG] 1 tab PO DAILY 07/28/17 DULoxetine HCL [Cymbalta] 60 mg PO DAILY 07/28/17 Multivitamins, Thera [Multivitamin (formulary)] 1 tab PO DAILY 07/28/17 Aspirin [[place] Aspirin EC] 81 mg PO DAILY 03/30/21 Rosuvastatin [Crestor] 20 mg PO HS 03/30/21 Alendronate Sodium [Fosamax] 70 mg PO TU 07/14/22 Calcium Carbonate [Calcium] 1,200 mg PO DAILY 07/14/22 Cholecalciferol (Vitamin D3) [Vitamin D3 (50 Mcg = 2000 Iu)] 50 mcg PO DAILY 08/22/24 Losartan [Cozaar] 50 mg PO BID 09/24/24 Controlled Substance Measures - Controlled Substance Measures Is patient prescribed a controlled substance at discharge?: No
== END ==
LOC: PNWHC3 09:15
PROVIDERS: ATTEND Specialist
DX: M47.22 Other spondylosis with radiculopathy, cervical region (principal); M41.9 Scoliosis, unspecified; Z88.5 Allergy status to narcotic agent
CPT/HCPCS: 99211